=== PATIENT | female | born 1975 | race Caucasian/White ===

== ENCOUNTER 2024-01-16 11:11 | Outpatient (OUT) | payer OTHER, SELFPAY ==
--- NOTE | 2024-01-16 | CONS_ITS ---
CONSULTATION DATE: 01/16/2024 TO: Luis Antonio Childress M.D. CHIEF COMPLAINT: Includes severe bilateral lower back pain. HISTORY OF PRESENT ILLNESS: Review of systems, past medical/surgical history were obtained and documented on the health questionnaire and is available upon request. She is a 48-year-old female who reports having had at least a 10-year history of lower back pain. She has undergone a medial branch block, which offered her significant reduction in pain symptoms, subsequent rhizotomy did not appear to offer complete relief or relief that was satisfactory. She has also undergone what is described as a lumbar epidural steroid injection, which also offered her marginal relief. Her pain has progressed to the point it has altered her quality of life, level of functioning and sleep pattern, and has been described as 5-6/10 pain, sharp in character, increased with activity such as prolonged sitting, forward flexion. She feels most comfortable in the semi-recumbent position, or if she changes positions frequently. She has trialed physical therapy in the past, which did improve her functionality but still had severe pain. EXAM: Her examination is notable for patient having no clinical radiculopathy or myelopathy involving the lower extremities. She may have had some moderate increase in pain symptoms with lumbar axial loading maneuvers. She did appear to have severe pain with facet loading maneuvers occurring bilaterally at L4-5 and L5-S1, with associated myofascial spasms of the lumbar paravertebral muscles, mainly her erector spinae muscle, also worse on the right than the left side on today?s visit. IMPRESSION: Our impression is patient with chronic residual pain secondary to lumbosacral spondylosis at L4-L5, L5-S1, occurring bilaterally, with associated myofascial spasm. RECOMMENDATIONS At this point, I have recommended she consider a trial on baclofen 10 mg pills, half to one t.i.d., aquatic therapy, and then consider proceeding with a repeat ablation of the L4-5, L5-S1 levels with denervation of the L4-5, L5-S1 facet joints, starting on the more symptomatic side first, and proceeding to the less symptomatic side subsequently. As part of providing excellent, safe, comprehensive care, the following was completed at our patient's visit: 1. A medication reconciliation and review to ensure accurate knowledge of current/active medications, including asking our patients to inform us about any [id number] medications or herbal remedies/nutritional supplements/alternative remedies. 2. A review to specifically ensure our patients have had annual screening for: elevated body mass index (BMI, see intake chart for exact total), tobacco use, screening for depression, and screening for unhealthy alcohol use. When screening is concerning, patients are provided with education and the specific recommendation to discuss the concerning health issue and treatment options with their primary care provider. [facility]
== END 2024-01-16 11:12 | disposition home or self-care (01) ==
LOC: PM 11:12
PROVIDERS: Visit Provider Anesthesiology Pain Medicine
DX: M54.50 Low back pain, unspecified (principal); M47.816 Spondylosis without myelopathy or radiculopathy, lumbar region; M62.838 Other muscle spasm
CPT/HCPCS: G0463

== ENCOUNTER 2024-02-06 07:54 | Day surgery (SDC) | payer OTHER, SELFPAY ==
--- OUTSIDE RECORDS SUMMARY | 2024-02-06 07:59 | XMS_ITS | CCD ---
Author Organization [facility] Care Team Providers Care Customer Contact Representative Name Role Phone Loida Joyce MD Primary Care Provider MARLO REEVES Attending Unavailable LOIDA JOYCE Referring Unavailable LOIDA JOYCE Primary Care Unavailable SUHAS BAE Referring Unavailable LOIDA JOYCE Primary Care Unavailable KENNY PORTER Referring Unavailable LOIDA JOYCE Primary Care Unavailable SUHAS BAE Referring Unavailable LOIDA JOYCE Primary Care Unavailable KENNY PORTER Attending Unavailable LOIDA JOYCE Referring Unavailable LOIDA JOYCE Primary Care Unavailable Medications Current Medications Medication Drug Class(es) Dates Sig (Normalized) Sig (Original) busPIRone hydrochloride 5 mg oral tablet (5 sources) Start: 05-31-2021 take 1 tablet by mouth three times daily busPIRone (BUSPAR) 5 mg tablet Take 1 tablet (5 mg total) by mouth 3 (three) times a day. 30 tablet 0 05/31/2021 Active citalopram 40 mg oral tablet (6 sources) Serotonin Reuptake Inhibitor Start: 07-09-2023 take 1 tablet by mouth once daily in the morning citalopram (CeleXA) 40 mg tablet take 1 tablet by mouth every morning 90 tablet 3 07/09/2023 Active Start: 07-06-2022 End: 07-09-2023 take 1 tablet by mouth once daily in the morning citalopram (CeleXA) 40 mg tablet take 1 tablet by mouth every morning 90 tablet 3 07/06/2022 07/09/2023 Discontinued [id number] 0.3 ml EPINEPHrine 1 mg/ml auto-injector (5 sources) alpha-Adrenergic Agonist, beta-Adrenergic Agonist, Catecholamine Start: 11-30-2022 EPINEPHrine (EPIP EN) 0.3 mg/0.3 mL auto-injector Inject 0.3 mL (0.3 mg total) into the appropriate muscle as needed (for sevre allergy). 2 each 0 11/30/2022 Active Lactobac no.41/Bifidobact no.7 (PROBIOTIC-10 ORAL) (5 sources) Lactobac no.41/Bifidobact no.7 (PROBIOTIC-10 ORAL) Take by mouth. 0 Active MULTIVIT-MINERALS/MONIKA MORENA FUM (MULTI VITAMIN ORAL) (5 sources) MULTIVIT-MINERAL S/FE RROUS FUM (MULTI VITAMIN ORAL) Take by mouth. 0 Active omega 5-pge-zhu-fish oil (Fish OiL) 300-1,000 mg capsule (5 sources) omega 3-dha-epa- fish oil (Fish OiL) 300-1,000 mg capsule Take by mouth. 0 Active Problems Active Problems Problem Classification Problem Date Documented Date Episodic/Chronic Coagulation and hemorrhagic disorders (5 sources) Thrombocytopenic disorder; Translations: [Thrombocytopenia, unspecified] Onset: 05-06-2019 05-06-2019 Chronic Other nervous system disorders (1 source) Other chronic pain; Translations: [Other chronic pain] Onset: 03-20-2023 Chronic Other screening for suspected conditions (not mental disorders or infectious disease) (2 sources) Patient encounter status; Translations: [Encounter for screening mammogram for malignant neoplasm of breast] Onset: 08-21-2023 05-18-2023 Episodic Residual codes; unclassified (1 source) Pain Onset: 06-14-2023 Episodic Spondylosis; intervertebral disc disorders; other back problems (2 sources) Lumbar spondylosis; Translations: [Spondylosis without myelopathy or radiculopathy, lumbar region] Onset: 06-14-2023 06-14-2023 Chronic Unclassified (1 source) Gynecologic Exam Onset: 05-18-2023 Unclassified (1 source) Low back pain, unspecified; Translations: [Low back pain, unspecified] Onset: 03-20-2023 Past or Other Problems Problem Classification Problem Date Documented Da te Episodic/Chronic Mood disorders (5 sources) Mood disorders Onset: 02-22-2023 02-22-2023 Other nervous system disorders (5 sources) Other symptoms and signs involving cognitive functions and awareness; Translations: [Other signs and symptoms involving cognition] Onset: 12-27-2015 12-27-2015 Episodic Other skin disorders (5 sources) Epidermoid cyst; Translations: [Epidermal cyst] Onset: 07-19-2017 07-19-2017 Episodic Residual codes; unclassified (5 sources) Mild memory disturbance ; Translations: [Other amnesia] Onset: 12-27-2015 12-27-2015 Episodic Spondylosis; intervertebral disc disorders; other back problems (3 sources) Backache; Translations: [Dorsalgia, unspecified] Onset: 03-20-2023 06-14-2023 Episodic Results Test Name Value Interpretation Reference Range Facil ity MAMM SCREENING BILATERAL W C registered nurse surgical services 08-23-2023 MAMM SCREENING BILATERAL W CAD MAMM SCREENING BILATERAL W CAD EXAM: MAMM SCREENING BILATERAL W CAD, 08/21/2023 3:19 PM CLINICAL INDICATIONS: Screening, Encounter for screening mammogram for malignant neoplasm of breast COMPARISON: 08/26/2022, 08/16/2022, 04/26/2021 TECHNIQUE: Bilateral digital tomosynthesis MLO and CC views of the breasts were obtained, with creation of synthetic 2D views. Computer aided detection was utilized. FINDINGS: There are scattered areas of fibroglandular density. There are no suspicious masses, calcifications, or areas of architectural distortion. IMPRESSION: No mammographic evidence of malignancy. BI-RADS: BI-RADS 1 - Negative Recommendation: Routine screening mammogram in 1 year. Finalized by Flora Burrell MD on 08/23/2023 2:24 PM 1 b MAMM 1 YR Normal [facility] MR LUMBAR SPINE WO CONTon MR LUMBAR SPINE WO CONT MR LUMBAR SPINE WO CONT EXAM: MR LUMBAR SPINE WO CONT INDICATION: Chronic bilateral low back pain without sciatica; Severe back pain COMPARISON: None TECHNIQUE: Multiplanar multisequence noncontrast MR sequences through the lumbosacral spine. FINDINGS: Vertebral Bodies and intervertebral discs: The vertebral body heights and signal properties are normal.. Desiccation of the intervertebral discs at L3-L4 and L5-S1. Alignment: Normal. Extradural:There are no abnormal extradural fluid collections or masses. Conus: The conus terminates at approximately L1-L2 intervertebral disc space. Spinal Cord and Cauda Equina: The included caudal spinal cord appears normal. Normal appearance of the cauda equina. Spinal levels: T12-L1: No spinal canal or foraminal stenosis. L1-L2: No spinal canal or foraminal stenosis. L2-L3: No spinal canal or foraminal stenosis. L3-L4: Small central disc protrusion with associated annular fissure. This is superimposed on mild circumferential disc bulge. There is mild thecal sac narrowing. Mild neural foraminal stenosis. L4-L5: Mild circumferential disc bulge. Mild bilateral facet arthropathy. No significant spinal canal stenosis. Mild bilateral neural foraminal stenosis. L5-S1: Circumferential disc bulge. Mild bilateral facet arthropathy. No significant spinal canal stenosis. Severe bilateral neural foraminal stenosis. Soft Tissues: Normal Intraabdominal structures: The included retroperitoneal and pelvic structures appear normal. IMPRESSION: Multilevel degenerative disc disease most pronounced at L5-S1 and to a lesser extent L3-L4. Central disc protrusion at L3-L4 with associated annular fissure. Mild thecal sac narrowing. Multilevel neural foraminal stenosis of varying degrees of severity most pronounced at L5-S1 bilaterally. See above for detailed evaluation of the individual levels. Finalized by Delon Luna on 05/11/2023 10:45 AM Normal [facility] Vital Signs Date Time Vital Sign Value Performing Clinician Lorriei gerardoy 06-14-2023 07:40-0400 Body height 171.5 cm Marlo Reeves MD Work Phone: [facility] 06-14-2023 07:40-0400 Body mass index (BMI) [Ratio] 24.69 kg/m2 Marlo Reeves MD Work Phone: [facility] 06-14-2023 07:40-0400 Body weight 72.58 kg Marlo Reeves MD Work Phone: [facility] 05-18-2023 10:31-0500 Body height 171.5 cm Kenny Porter DO Work Phone: [facility] 05-18-2023 10:31-0500 Body mass index (BMI) [Ratio] 24.72 kg/m2 Kenny Porter DO Work Phone: [facility] 05-18-2023 10:31-0500 Body weight 72.67 kg Kenny Porter DO Work Phone: [facility] 05-18-2023 10:31-0500 Diastolic blood pressure 78 mm[Hg] Kenny Porter DO Work Phone: [facility] 05-18-2023 10:31-0500 Systolic blood pressure 118 mm[Hg] Kenny Rosemont DO Work Phone: [facility] Encounters Encounter Date Encounter Type Care Provider Facility Start: 08-21-2023 End: 08-22-2023 ambulatory [facility] Start: 07-09-2023 Refill Loida morrell MD Work Phone: [facility] Start: 06-14-2023 End: 06-14-2023 ambulatory [facility] Start: 06-14-2023 End: 06-14-2023 Office outpatient new 30 minutes Marlo Reeves MD Work Phone: [facility] Comment on above: 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); Severe back pain Start: 05-18-2023 End: 05-18-2023 ambulatory KENNY Dillon PORTER [facility] Start: 05-18-2023 Encounter for gynecological examination (general) (routine) [facility] abnormal [facility]: 05-18-2023 End: 05-18-2023 Patient encounter status Kenny Porter DO Work Phone: [facility] Start: 05-18-2023 End: 05-18-2023 Periodic preventive med est patient 40-64yrs Kenny Porter DO Work Phone: [facility] Comment on above: Encounter for gyneco logical examination without abnormal finding (Primary Dx); Encounter for screening mammogram for malignant neoplasm of breast Start: 05-09-2023 End: 05-10-2023 ambulatory [facility] Start: 05-03-2023 Telephone encounter Erika Jovel [facility] Start: 05-01-2023 Telephone encounter Erika Staton [facility] Start: 03-20-2023 End: 04-03-2023 ambulatory [facility] Start: 12-27-2015 End: 10-24-2016 Patient encounter status Erika Jamie [facility] Work Phone: Procedures Date Procedure Procedure Detail Performing Clinician Start: 02-22-2023 Adult depression scr eening assessment Erika Ayala Start: 08-26-2022 Mammography Erika rodriguez Start: 03-31-2022 Microscopic observat ion [Identifier] in Cervix by Cyto stain Erika Ayala Plan of Treatment Date Care Activity Detail Author Start: 03-31-2025 Screening for malign ant neoplasm of cervix Pap Smear [facility] Start: 11-27-2024 DTaP,Tdap and Td Vaccines (2 - Td or Tdap) DTaP,Tdap and Td Vaccines (2 - Td or Tdap) [facility] Start: 09-19-2024 End: 09-19-2024 Patient encounter procedure 09/19/2024 10:00 AM EDT Office Visit [facility] [address] [place] [address] Kenny Porter, [address] [facility] [place] [address] [facility] Start: 08-26-2024 Screening for malign ant neoplasm of breast Mammogram [facility] Start: 08-22-2024 End: 08-22-2024 Patient encounter procedure 08/22/2024 11:00 AM EDT [facility] [address] [place] [address] Kenny Porter, [facility] [place] [address] [facility] Start: 06-13-2024 Adult BMI Screening Adult BMI Screen ing [facility] Start: 06-13-2024 Tobacco Screening Tobacco Screening [facility] Start: 05-18-2024 Adult BMI Screening Adult BMI Screen ing [facility] Start: 05-18-2024 Tobacco Screening Tobacco Screening [facility] Start: 02-23-2024 Adult BMI Screening Adult BMI Screen ing [facility] Start: 02-23-2024 Depression Screening Depression Scre ening [facility] Start: 02-23-2024 Tobacco Screening Tobacco Screening [facility] Start: 12-03-2023 Influenza vaccination Influenza Vacc ine [facility] Start: 08-21-2023 End: 08-21-2023 Patient encounter procedure 08/21/2023 3:30 PM EDT Appointment [facility] Mamm[facility] [address] [address] [facility] - Mammography Start: 06-14-2023 End: 06-14-2023 Patient encounter procedure 06/14/2023 7:40 AM EDT Office Visit [facility] [address] [place] [address] [address] [place] [id number] Marlo Reeves MD [facility] [facility], [address] [address] [facility] Start: 05-18-2023 End: 05-18-2024 DBT Breast - bilateral screening Mammography screening bilateral with CAD Imaging Routine Encounter for screening mammogram for malignant neoplasm of breast Expected: 05/18/2023, Expires: 05/18/2024 Med Work Phone: Comment on above: Expected: 05/18/2023 , Expires: 05/18/2024 Start: 05-18-2023 End: 05-18-2023 Patient encounter procedure 05/18/2023 10:30 AM EST Office Visit [facility] [address] [place] [address] [place] Kenny CarranzaDO [address] [facility] [place] [address] [facility] Start: 05-09-2023 End: 05-09-2023 Patient encounter procedure 05/09/2023 9:15 PM EST Appointment [facility] [place] [address] [place] [id number] [facility] Start: 12-02-2022 COVID-19 Vaccine ( season) COVID-19 Vaccine ( season) [facility] Start: 12-02-2022 Influenza vaccination Influenza Vacc ine [facility] Immunizations Immunization Date Immunization Notes Care Provider Jerardo cruz 01-09-2018 influenza virus vaccine, unspecified formulation Erika Napalycia [facility] 12-14-2016 influenza virus vaccine, unspecified formulation [facility] 11-27-2014 tetanus toxoid, redu renato diphtheria toxoid, and acellular pertussis vaccine, adsorbed [facility] Payers Date Payer Category Payer Unknown [facility] [id number] 2021-Present [phone] [address] [address] [place] [address] [id number] 2021 Unknown [id number] 1975 Unknown [id number] 1975 Unknown [id number] 1975 Unknown [id number] 1975 Unknown [id number] 1975 Unknown [id number] Social History Date Type Detail Facility Start: 03-31-[address] [facility] Start: 03-31-2022 Tobacco use and exposure Smoke less tobacco non-user [facility] Start: 02-22-2023 End: 06-14-2023 Alcohol intake Current drinker of alcohol (finding) [facility] Start: 02-13-2020 End: 04-22-2020 History of Social function [facility] Start: 02-13-2020 End: 04-22-2020 Alcohol Use Disorder Identification Test - Consumption [AUDIT-C] [facility] How often to you hav e a drink containing alcohol? 2-4 times a month [facility] How many standard dr inks containing alcohol do you have on a typical day? 1 or 2 [facility] How often do you hav e 6 or more drinks on 1 occasion? Less than monthly [facility] Adolescent depressio n screening assessment 0 [facility] Start: 1975 Sex Assigned At Female [facility] Start: 03-20-2021 Gender identity Identifies as female gender (finding) [facility] Start: 03-20-2021 Sexual orientation Heterosexual (fin ding) [facility] NEGATED: Highlighted rowStart: NINF History of tobacco use Passive smoker [facility] Clinical Notes 05-01-2023 to 06-14-2023 Marlo Reeves MD - 06/14/2023 7:40 AM EDTPatizohra Porter DO - 05/18/2023 10:30 AM ESTTelephone Encounter - Erika Ayala - 05/03/2023 11:29 AM EST Note Date & Type Note Facility 06-14-2023 History of Presen t illness Narrative [facility] [address] [facility] [id number] CHART NOTE ? 06/14/2023 Patient: Ashley Smith 1975 [id number] Physician: Marlo Reeves MD Last encounter with Group Visit date not found REFERRING PHYSICIAN Loida Joyce MD PCP LOIDA JOYCE MD CHIEF COMPLAINT: Lower back pain SUBJECTIVE: Ashley Smith is a 48 y.o. female who has been referred for consultation regarding her lower back symptoms. The pain started gradually 10 years ago and is chronic in nature, but has been getting worse. The pain in her lower back spine has been for and a scale of 1-10 on an average. The pain usually does not radiate down to the legs. Her symptoms are worse in the morning. She is able to walk up to a mile without any difficulty. The pain is relieved with rest . It gets worse with activity . She denies any recent onset problems with bowel or bladder dysfunction. Patient has tried taking anti inflammatory medications. She has had physical therapy. PAST MEDICAL HISTORY, MEDICATIONS, ALLERGIES, SOCIAL HISTORY AND FAMILY HISTORY, REVIEW OF SYSTEMS : Reviewed. She reports that she has never smoked. She has never been exposed to tobacco smoke. She has never used smokeless tobacco.. Her body mass index is 24.69 kg/m . OBJECTIVE: The patient is alert, awake and oriented X3. Patient is cooperative. Mood and affect is normal. HEENT examination is unremarkable. Patient is normocephalic. Patient walks with a normal gait. Brisk capillary refill noted in lower extremities. Lumbar Spine examination reveals no tenderness to palpation. There is no paraspinal spasm and guarding noted. Range of movement is good with no increased pain. Motor strength testing reveals 5/5 strength in the lower extremities. Sensory examination grossly intact to light touch. Straight leg raise is negative. Bilateral hips reveal good range of motion. Sacroiliac joints no tenderness to palpation. IMAGING: ASSESSMENT: Lumbar degenerative disc disease L5-S1 Mild disc bulging causing no central canal or foraminal stenosis. PLAN: Imaging as well as possible treatment options were discussed detail with the patient. At this point she has tried physical therapy with little to no relief. With that being said I did discuss with her the possibility of pain management. I will get her referred and plan to see her back on a p.r.n. basis if this does not work for her. I, Marlo Reeves MD, personally performed the face to face evaluation on this patient. I discussed with the patient and confirmed the accuracy and completeness of the aforementioned history, and I personally performed the clinical examination of the patient. I performed the critical and elder portions of the service. I agree with above-mentioned history and physical examination findings. I have established and discussed the course of treatment with the patient and EMMANUELLE Orlando. My medical decision making and treatment plan are as follows: This is a 48-year-old female who presents to me for evaluation of her lumbar spine. 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 She has been reporting some lower back pain for the past 10 years or so. She denies any lower extremity symptoms. She has not done any pain management but she is done extensive physical therapy. 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 Denies any bowel or bladder dysfunction.Lumbar Spine examination reveals mild to moderate tenderness. There is increased pain with extension and less pain with flexion. Negative straight leg raise. Calves are soft and nontender. Overlying skin is intact. There is no gross motor sensory deficit in bilateral lower extremities from L2 down to S1. Lumbar radiographs show some degenerative disc disease L5-S1. Lumbar MRIs not particularly impressive it does not warrant any surgical treatment. I discussed these findings with the patient. She is willing to try pain management at the next modality of choice. I will have her come back in the office if she still remains symptomatic Despitepain management. She has no questions. This note was created with the assistance of a speech recognition program with the goal of generating a timely record of the patient encounter. Inadvertent computerized popcorn candy maker errors related to syntax, spelling, homophones, and/or inaudibility may be present. documented in this encounter [employer] 06-14-2023 Instructions Marlo Reeves MD - 06/14/2023 7:40 AM EDT Images from the original note were not included. Patient Education Patient Education Back Exercises About this topic The muscles in the back are some of the most important ones in the body. They support the backbone to help keep an upright posture. They help us do most all of our daily motions. General Before starting with a program, ask your doctor if you are healthy enough to do these exercises. Your doctor may have you work with a strainer tender, chiropractor or physical therapist to make a safe exercise program to meet your needs. Stretching Exercises Stretching exercises keep your muscles flexible. They also stop them from getting tight. Start by doing each of these stretches 2 to 3 times. In order for your body to make changes, you will need to hold these stretches for 20 to 30 seconds. Try to do the stretches 2 to 3 times each day. Do all exercises slowly. Do not bounce when doing stretches. Single knee to chest stretches ? Lie on your back, bend your knees and have your feet flat on the floor. Pull one knee towards your chest until you feel a stretch in your lower back and buttock area. Repeat with the other knee. If you have knee problems, pull your knee up by grabbing the back of your thigh instead of the front of your knee. You can also do this exercise by grabbing both knees at the same time. Lower trunk rotations ? While lying on your back, bend your knees and have your feet flat on the floor. Keep your legs together and then drop them to one side. Be sure to keep both of your shoulders touching the floor until you feel a stretch in the muscles at the side of the back. Repeat on the other side. Lower back stretches seated ? Sit in a chair with your feet spread about shoulder width apart. Then, lean forward until you feel a stretch in your lower back. Strengthening Exercises Strengthening exercises keep your muscles firm and strong. Start by repeating each exercise 2 to 3 times. Work up to doing each exercise 10 times. Hold each exercise for 3 to 5 seconds. Try to do the exercises 2 to 3 times each day. Do all exercises slowly. Shoulder blade squeezes ? Pinch your shoulder blades together on your upper back and hold 3 to 5 seconds. Be sure you are sitting with good posture and make sure your shoulders do not raise up when you do this exercise. Relax. Pelvic tilts ? Lie on your back with your knees bent and feet flat on the floor. Tighten your stomach muscles and press your lower back down to the floor. Relax. Hip lifts ? Lie on your back with your knees bent and feet flat on the floor. Tighten your stomach muscles and lift your buttocks off the floor. Relax. What will the results be? Keeping your back muscles flexible and strong can help stop muscle injuries. This often happen when muscles are tight or weak. Helpful tips Stay active and work out to keep your muscles strong and flexible. Keep a healthy weight to avoid putting too much stress on your spine. Eat a healthy diet to keep your muscles healthy. Be sure you do not hold your breath when exercising. This can raise your blood pressure. If you tend to hold your breath, try counting out loud when exercising. If any exercise bothers you, stop right away. Always warm up before stretching. Heated muscles stretch much easier than cool muscles. Stretching cool muscles can lead to injury. Try walking or cycling at an easy pace for a few minutes to warm up your muscles. Do this again after exercising. Never bounce when doing stretches. Doing exercises before a meal may be a good way to get into a routine. Exercise may be slightly uncomfortable, but you should not have sharp pains. If you do get sharp pains, stop what you are doing. If the sharp pains continue, call your doctor. Where can I learn more? [employer] https://orthoinfo.org/en/recover y/irexj-pgwcqhzrslds-rdbssth/spi vr-nldxyzprynyk-ppbwole-pdf Last Reviewed Date 2020-06-18 Consumer Information Use and Disclaimer This generalized information is a limited summary of diagnosis, treatment, and/or medication information. It is not meant to be comprehensive and should be used as a tool to help the user understand and/or assess potential diagnostic and treatment options. It does NOT include all information about conditions, treatments, medications, side effects, or risks that may apply to a specific patient. It is not intended to be medical advice or a substitute for the medical advice, diagnosis, or treatment of a health care provider based on the health care provider's examination and assessment of a patient s specific and unique circumstances. Patients must speak with a health care provider for complete information about their health, medical questions, and treatment options, including any risks or benefits regarding use of medications. This information does not endorse any treatments or medications as safe, effective, or approved for treating a specific patient. [employer] and its affiliates disclaim any warranty or liability relating to this information or the use thereof. The use of this information is governed by the Terms of Use, available at https://www.wolAvolentuwer.com/en /know/qhdnqthc-ifurusnadttnk-yia ms Copyright Copyright 2022 [employer] and its affiliates and/or licensors. All rights reserved. Patient Education Patient Education Low back pain in adults The Basics Written by the doctors and editors at [facility] How worried should I be about low back pain? -- Do not assume the worst. Almost everyone gets back pain at some point. Low back pain can be scary. But even when the pain is severe, it usually goes away on its own within a few weeks. The cases that require urgent care or surgery are rare. See your doctor or nurse if you have back pain and you: Recently had a fall or an injury to your back Have numbness or weakness in your legs Have problems with bladder or bowel control Have unexplained weight loss Have a fever or feel sick in other ways Take steroid medicine, such as prednisone, on a regular basis Have diabetes or a medical problem that weakens your immune system Have a history of cancer or osteoporosis You should also see a doctor if: Your back pain is so severe that you cannot perform simple tasks Your back pain does not start to improve within 4 weeks What are the parts of the back? -- The back is made up of (figure 1): Vertebrae - A stack of bones that sit on top of one another like a stack of coins. Each of these bones has a hole in the center. When stacked, the holes in the bones form a hollow tube that protects the spinal cord. Discs - Rubbery discs sit in between each of the vertebrae to add cushion and allow movement. Spinal cord and nerves - The spinal cord is the highway of nerves that connects the brain to the rest of the body. It runs through the vertebrae within the spinal canal. Nerves branch from the spinal cord and pass in between the vertebrae. From there, they connect to the arms, the legs, and the rest of the body. This is why problems in the back can cause leg pain or bladder or bowel problems. Muscles, tendons, and ligaments - Together, the muscles, tendons, and ligaments are called the soft tissues of the back. These soft tissues support the back and help hold it together. What causes low back pain? -- Many different things can cause low back pain. Most of the time, doctors do not know the exact cause. Back pain can happen if you strain a muscle. This is often what has happened when a person throws out their back. This refers to pain that starts suddenly after physical activity, like lifting something heavy or bending over. Back pain can also happen if you have: Damaged, bulging, or torn discs Arthritis affecting the joints of the spine Bony growths on the vertebrae that crowd nearby nerves A vertebra out of place Narrowing in the spinal canal A tumor or infection (but this is very rare) Should I get an imaging test? -- Most people do not need an imaging test such an X-ray, CT scan, or MRI. Most cases of back pain go away a few weeks. Doctors usually do not order imaging tests unless there are signs of something unusual. If your doctor does not order an imaging test, do not worry. They can still learn a lot about your pain just from looking you over and talking with you. How can the doctor or nurse tell what is wrong just by talking to me? -- Your symptoms tell your doctor or nurse a lot about the cause of your pain. For example: If your pain started after you did something specific, like lifting a heavy object or twisting your back, you might have strained a muscle If your pain spreads down the back of 1 thigh, it could be a sign that 1 of the nerves that go to your leg is being pinched by a bulging or torn disc If your pain goes all the way down both legs, it could be a sign that you have a narrowed spinal canal. This is most often due to bony growths on your spine. How is back pain treated? -- Most people with an episode of low back pain do not have a serious medical problem, and can try simple treatments such as: Staying active - The best thing you can do is to stay as active as possible. People with low back pain recover faster if they stay active. If your pain is severe, you might need to rest for a day or 2. But it's important to get back to walking and moving as soon as possible. While you should avoid heavy lifting and sports while your back hurts, try to keep doing your normal daily activities. Heat - Some people find that it helps to use a heating pad or heated wrap. Be careful to avoid high heat settings to prevent skin hernandez. Medicines - First, you can try pain medicines that you can get without a prescription. In many cases, doctors suggest first trying a nonsteroidal antiinflammatory drug, or NSAID. NSAIDs include ibuprofen (sample brand names: Advil, Motrin) and naproxen (sample brand name: Aleve). These might work better than acetaminophen (sample brand name: Tylenol) for back pain. If non-prescription medicines do not help, let your doctor or nurse know. In some cases, doctors prescribe a medicine to relax the muscles (called a muscle relaxant ). But keep in mind that muscle relaxants are not generally used in people older than 65. In older people, these medicines can cause side effects such as trouble urinating or confusion. Treatments to help with symptoms - Some treatments might help you feel better for a little while. They include: Spinal manipulation - This is when a chiropractor, physical therapist, or other professional moves or adjusts the joints of your back. If you want to try this, talk to your doctor or nurse first. Acupuncture - This is when someone who knows traditional Croatian medicine inserts tiny needles into your body to block pain signals. Massage - A massage therapist massages the muscles and other soft tissues in your back. While back pain usually goes away within a few weeks, some people do continue to have pain for longer. In this case, additional treatments might include: Self-care - This involves being aware of your pain. While you should rest when you need to, it's important to stay active as much as you can. Things like applying heat and doing gentle stretches can help you feel better, too. Physical therapy - A physical therapist is an exercise expert who can teach you stretches and movements to help strengthen your muscles. The goal is to relieve pain but also help you get back to your normal activities. Exercises you can try include walking, swimming, or using an exercise bike. Some people also find that paola chi or yoga can help with their back pain. Finding activities you enjoy can help you stay active. Reducing stress - Some people find that it helps to try something called mindfulness-based stress reduction. This involves going to a group program to practice relaxation and meditation. If your back pain is making you feel anxious or depressed, talk to your doctor or nurse. There are other treatments that can help with these problems. Some people wonder if injections (shots) can help to relieve back pain. In some cases, doctors might recommend a shot of medicine to numb the area or reduce swelling. But this has only been proven to work in specific situations. Only a small number of people will need surgery to treat back pain. What can I do to keep from getting back pain again? -- The best thing you can do is to stay active. Doing exercises to strengthen and stretch your back can help. You can also: Learn to lift using your legs instead of your back Avoid sitting or standing in the same position for too long Having back pain can be frustrating and scary. But it can help to know that doing these things can lower your risk of having another episode. All topics are updated as new evidence becomes available and our peer review process is complete. This topic retrieved from [employer] on: May 16, 2022. Topic 49067 Version 20.0 Release: 30.5.3 - C31.43 2022 [email or web address] and/or its affiliates. All rights reserved. figure 1: Anatomy of the back Low back pain can be caused by problems with the muscles, ligaments, discs, bones (vertebrae), or nerves. Often, back pain is caused by strains or sprains involving the muscles or ligaments. These problems cannot always be seen on imaging tests, such as MRI or CT scans. Graphic 81213 Version 5.0 Consumer Information Use and Disclaimer This generalized information is a limited summary of diagnosis, treatment, and/or medication information. It is not meant to be comprehensive and should be used as a tool to help the user understand and/or assess potential diagnostic and treatment options. It does NOT include all information about conditions, treatments, medications, side effects, or risks that may apply to a specific patient. It is not intended to be medical advice or a substitute for the medical advice, diagnosis, or treatment of a health care provider based on the health care provider's examination and assessment of a patient's specific and unique circumstances. Patients must speak with a health care provider for complete information about their health, medical questions, and treatment options, including any risks or benefits regarding use of medications. This information does not endorse any treatments or medications as safe, effective, or approved for treating a specific patient. [email or web address] and its affiliates disclaim any warranty or liability relating to this information or the use thereof.The use of this information is governed by the Terms of Use, available at https://www.Meetings.iouwer.com/en /know/kmvuaxht-goimuezwxibih-fuq ms 2022 [employer] and its affiliates and/or licensors. All rights reserved. Copyright 2022 [employer] and/or its affiliates. All rights reserved. documented in this encounter [employer] 05-18-2023 History of Presen t illness Narrative Subjective Ashley Smith is a 48 y.o. female who presents for an annual gynecologic exam. The patient reports weight gain-disc poss etiologies and what to watch for, and breast tenderness bilateral-lasted 1.5 wks, does not normally occur-disc poss etiologies and suspect due to hormones, will watch over next couple cycles . Pt is doing well otherwise, no life changes, no other concerns today Periods are regular every 28-30 days, lasting 7 days. Dysmenorrhea:severe, occurring premenstrually and first 1-2 days of flow. Cyclic symptoms include cramping . No intermenstrual bleeding, spotting, or discharge. Current contraception: vasectomy History of abnormal Pap smear: no Last pap: March 13, 2022 Family history of uterine or ovarian cancer: no Regular self breast exam: yes Last mammogram: August 16, 2022 Last colonoscopy: Cologuard 04/10/2022 Family history of breast cancer: no Family history of colon cancer: no Menstrual History: OB History 2 Para 2 Term 2 AB Living 2 SAB IAB Ectopic Multiple Live Births 2 Menarche age: 13 LMP:05/15/2023 The following portions of the patient's history were reviewed and updated as appropriate: allergies, current medications, past family history, past medical history, past social history, past surgical history and problem list. Review of Systems Pertinent items are noted in HPI, otherwise negative. Objective There were no vitals filed for this visit. General: alert, appears stated age and cooperative Heart: regular rate and rhythm Lungs: clear to auscultation bilaterally Breast: normal without suspicious masses, skin or nipple changes or axillary nodes Abdomen: soft, non-tender, without masses or organomegaly Vulva: normal, Bartholin's, Urethra, [place]'s normal Vagina: Vaginal Cuff:no Bleeding: no Discharge: no Cervix: no cervical motion tenderness Uterus: normal size, non-tender, and normal shape and consistency Adnexa: normal adnexa, no mass/fullness/tenderness bilaterally Lymphatics: No abnormally enlarged lymph nodes. Musculoskeletal: Normal. Skin: Skin color, texture, turgor normal. No rashes or lesions Neuro: normal without focal findings, mental status, speech normal, alert and oriented x3, ROBERTO and reflexes normal and symmetric Psychological: normal mood, behavior, speech, dress, and thought processes Assessment/Plan: Ashley was seen today for gynecologic exam. Diagnoses and all orders for this visit: Encounter for gynecological examination without abnormal finding Encounter for screening mammogram for malignant neoplasm of breast - Mammography screening bilateral with CAD; Future Breast self exam technique reviewed and patient encouraged to perform self-exam monthly. Encouraged colonoscopy and/or FIT screening test. Contraception: vasectomy Discussed healthy lifestyle modifications including dietary changes and exercise for weight loss Follow up in 1 year. Follow up as needed. Mammogram. Patient was also counseled perimenopausal/menopausal signs and symptoms and adequate intake of calcium and vitamin D. All questions answered. Patient understands and agrees with plan. Encouraged to call if questions or concerns, pt agreeable. documented in this encounter [facility] 05-03-2023 Miscellaneous Notes PT called to confirm that physical therapy documents were received. Appears we have that from [facility] in her chart. Please advise if there is anything else needed from the patient at this time. Thank you! Paperwork was faxed previously to pre cert documented in this encounter [facility] 05-03-2023 Telephone encounter Note PT called to confirm that physical therapy documents were received. Appears we have that from [facility] in her chart. Please advise if there is anything else needed from the patient at this time. Thank you! [facility] 05-03-2023 Telephone encounter Note Paperwork was faxed previously to pre cert [facility] 05-01-2023 Miscellaneous Notes Phil with [facility] pre-cert. called Asking for physical therapy notes that can be sent over on this patient before their upcoming MRI appt on May 09. Please fax to [phone]. Please advise. Thank you! Can you do this? I called the patient back since there are no PT notes in her chart (Suhas has a note she completed PT but there is not record of this in her chart and he ordered the MRI) She states she did PT thru her insurance and she will have the notes faxed over to our office Paperwork was faxed over from [facility] and was faxed to pre cert as requested per verbal order documented in this encounter [facility] 05-01-2023 Telephone encounter Note Phil with [facility] pre-cert. called Asking for physical therapy notes that can be sent over on this patient before their upcoming MRI appt on May 09. Please fax to [phone]. Please advise. Thank you! [facility] 05-01-2023 Telephone encounter Note Can you do this? [facility] Work Phone: 05-01-2023 Telephone encounter Note I called the patient back since there are no PT notes in her chart (Suhas has a note she completed PT but there is not record of this in her chart and he ordered the MRI) She states she did PT thru her insurance and she will have the notes faxed over to our office Paperwork was faxed over from [facility] and was faxed to pre cert as requested per verbal order [employer] [facility] Evaluation note Diagnosis Encounter for gynecological examination without abnormal finding- Primary Encounter for screening mammogram for malignant neoplasm of breast documented in this encounter [facility]* Diagnosis Spondylosis of lumbar region without myelopathy or radiculopathy- Primary Severe back pain documented in this encounter [facility] SystemInstructionsNot on filedocumented in this encounter [facility] [employer] SystemInstructionsNot on filedocumented in this encounter [facility] SystemInstructions* Attachments The following attachments cannot be sent through Care Everywhere. * Gynecological Exam (Armenian) [facility] (narrative)* Consultation (Routine) - Pending Review Specialty Diagnoses / Procedures Referred By Maranda t Referred To Contact Pain Medicine Diagnoses Spondylosis of lumbar region without myelopathy or radiculopathy Marlo Reevse MD [address] [place] [address], [place] [address] Ludwin Alexander MD [address] [employer] [place] [place] [address] Referral ID Status Reason Start Date Expiration Date V isits Requested Visits Authorized [id number] Pending Review 06/14/2023 06/13/2024 1 1 [employer] Advance Directives No Advanced Directives Records FoundDocuments on File Type Date Recorded Patient Wellness Specialist Expl anation Advance Directive 05/06/2019 11:34 AM ppgad 05/06/2019 Documents on File Type Date Recorded Patient Wellness Specialist Expl anation Advance Directive 05/06/2019 11:34 AM ppgad 05/06/2019 Summary Purpose Family History No Family History Records FoundNo Family History Records Found Additional Source Comments Care Teams (unrecognized sec tion and content) Customer Contact Representative 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 Specialty Start Date End Date Loida Joyce MD [address] [place] [address], [address] [place] [address] PCP - General 02/22/13 Customer Contact Representative 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 Specialty Start Date End Date Loida Joyce MD [address] [place] [address], [address] [place] [address] PCP - General 02/22/13 Customer Contact Representative 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 Specialty Start Date End Date Loida Joyce MD [address] [place] [address], [address] [place] [address] PCP - General 02/22/13 Customer Contact Representative 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 Specialty Start Date End Date Loida Joyce MD [address] [place] [address], [address] [facility] [place] [address] PCP - General 02/22/13 Reason for Visit (unrecogniz ed section and content) Reason Comments Gynecologic Exam Reason Comments Pain Lumbar- pain stays i n back, minimal pain Specialty Diagnoses / Procedures Referred By Contac t Referred To Contact Orthopedic Surgery Diagnoses [place] [address] [place] [address], [address] [place] [address] Marlo Reeves MD [address] [place] [address], [address] [address] Referral ID Status Reason Start Date Expiration Date Visits Requested Visits Authorized [id number] Pending Review Specialty Services Required 05/12/2023 05/11/2024 1 1 Reason Comments Med Refill INFORMATION SOURCE (unrecogn ized section and content) DATE CREATED AUTHOR 06/15/2023 [facility] DATE CREATED AUTHOR AUTHOR'S YARELIS ATJO ANN 08/23/2023 [facility] FOR RECORDS PERTAINING TO PATIENTS WHO ARE OR HAVE BEEN ENROLLED IN A CHEMICAL DEPENDENCY/SUBSTANCEABUSE PROGRAM, SOME INFORMATION MAY BE OMITTED. This clinical summary was aggregated from multiple sources. Caution should be exercised in using it in the provision of clinical care. This summary normalizes information from multiple sources, and as a consequence, information in this document may materially change the coding, format and clinical context of patient data. In addition, data may be omitted in some cases. CLINICAL DECISIONS SHOULD BE BASED ON THE PRIMARY CLINICAL RECORDS. [employer] provides no warranty or guarantee of the accuracy or completeness of information in this document.
[2024-02-06 08:09] VITALS: BP 124/75; PULSE 84; TEMP 36.5; O2SAT 99
[2024-02-06 09:16] VITALS: BP 125/62; PULSE 72; O2SAT 96
[2024-02-06 09:17] VITALS: BP 124/71; PULSE 73; O2SAT 97
[2024-02-06] MEDS: TRIAMCINOLONE ACETONIDE 40 MG/ML VIAL INJ (09:22)
[2024-02-06] MEDS: BUPIVACAINE HCL 0.25% PF 25 MG/10 ML VIAL 4 ML INJ (09:23)
--- NOTE | 2024-02-06 10:20 | P.ON_ITS ---
Date of procedure: 02/06/24 Pre-op diagnosis: Lumbar spondylosis Post-op diagnosis: same as pre-op Procedure: Bilateral lumbar 4-5, 5-S1 medial branch block - therapeutic Under fluoroscopic guidance Solution injected: 2milliliters Marcaine 0.25%, Depomedrol 40mg Anesthesia :none Immediate complications none Time out process compliant After informed consent obtained from the patient placed in the [employer] . area was prepped and draped in a sterile fashion using betadine .25 gauge spinal needle inserted over each of the above mentioned target areas . [place] were directed towards the target under fluoroscopic guidance . after encountering each of the targets , no indication of intravascular intraneuronal or intrathecal needle tip placement. Then 0 .5 to 1 Milliliter was injected at each level. [place] removed postoperatively. patient transferred to recovery in stable condition to be discharged home after meeting criteria Anesthesia: Local Surgeon: Toma Thompson Condition: stable Disposition: PACU
== END 2024-02-06 09:27 | disposition home or self-care (01) ==
LOC: SURGOUT 07:55
PROVIDERS: Visit Provider Anesthesiology Pain Medicine
DX: M47.816 Spondylosis without myelopathy or radiculopathy, lumbar region (principal)
CPT/HCPCS: 64493; 64494; J0665; J3301

== ENCOUNTER 2024-02-15 15:31 | Outpatient (OUT) | payer OTHER, SELFPAY ==
--- NOTE | 2024-02-15 15:44 | PM.CN ---
Consult Note: HPI Data of Consult Patient: known to practice within the last 3 years Requesting Physician: Melody Laboy NP Primary Care Provider: Non-Staff Physician, MD Consult Narrative Reason for consult: f/u Narrative: She is a 49-year-old female who reports having had at least a 10-year history of lower back pain. She has undergone a medial branch block, which offered her significant reduction in pain symptoms, subsequent rhizotomy did not appear to offer complete relief or relief that was satisfactory. She has also undergone what is described as a lumbar epidural steroid injection, which also offered her marginal relief. Her pain has progressed to the point it has altered her quality of life, level of functioning and sleep pattern, and has been described as 5-6/10 pain, sharp in character, increased with activity such as prolonged sitting, forward flexion. She feels most comfortable in the semi-recumbent position, or if she changes positions frequently. She has trialed physical therapy in the past, which did improve her functionality but still had severe pain. recently underwent a bilateral L4/5 L5/S1 therapeutic facet block with 50% improvement ongoing. Pain 1/10 intermittent stiffness. finds benefit to baclofen 5-20mg TID PRN pain/spasms without side effects. cc:: CC: Melody Laboy NP Review of Systems ROS Musculoskeletal Reports: back pain PFSH PFS Medical History (Updated 02/15/24 @ 15:59 by Melody Laboy NP) Low back pain ?M54.50 - Low back pain, unspecified (ICD-10) Surgical History H/O section ?Z98.891 - History of uterine scar from previous surgery (ICD-10) Meds Home Medications and Allergies Home Medications ?Medication ?Instructions ?Recorded ?Confirmed ?Type buspirone 5 mg tablet 5 mg PO BID PRN anxiety 01/16/24 02/06/24 History citalopram 40 mg tablet (Celexa) 40 mg PO DAILY 01/16/24 02/06/24 History phentermine 37.5 mg tablet 18.75 mg PO DAILY 01/16/24 02/06/24 History (Adipex-P) baclofen 10 mg tablet 10 mg PO TID PRN muscle spasm 01/30/24 02/06/24 History Allergies Allergy/AdvReac Type Severity Reaction Status Date / Time No Known Drug Allergies Allergy Verified 02/06/24 08:08 Exam Constitutional Documenting provider has reviewed patient's vital signs: yes Common normals: no apparent distress, oriented x3, healthy appearing, alert and well nourished General appearance: cooperative HENGA Common normals: normocephalic, hearing grossly normal bilaterally and moist oral mucous membranes Head and scalp: normocephalic Eye Common normals: PERRL Pupil: PERRL Neck & C-Spine Common normals: full ROM General: normal visual inspection Chest Common normals: inspection of chest normal Respiratory Common normals: normal respiratory effort, no retractions and no use of accessory muscles Back & Pelvis Lumbar spine/lower back: lumbar spinal tenderness (L3/4 loading positive, negative L5-s1 at this time ); ROM not limited and no pain with ROM Neuro Common normals: oriented x3, CN's II-XII intact bilaterally, moves all extremities, no focal motor deficits, no sensory deficits noted and deep tendon reflexes 2+ bilaterally Sensorium/orientation: alert Motor exam: strength 5/5 throughout and no movement abnormalities noted Psych Common normals: mental status grossly normal, thought process normal, cooperative, affect normal, speech normal and activity/motor behavior normal Speech: normal speech Thought process: normal thought process Results Additional Findings Additional findings: If on a controlled substance or opioids, I have checked an OARRS report on this patient and there are no aberrancies noted in the prescribing history.??If on a controlled substance or opioid a drug screen was completed and reviewed within the last year, and if there has not been a drug screen completed we ordered one today to monitor higher risk, state monitored pain medication use. As part of providing excellent, safe, comprehensive care, the following was completed at our patient's visit: 1. A medication reconciliation and review to ensure accurate knowledge of current/active medications, including asking our patients to inform us about any ocbg-mvf-zawlmpd medications or herbal remedies/nutritional supplements/alternative remedies. 2. A review to specifically ensure our patients have had annual screening for screening for depression, screening for tobacco use, and screening for unhealthy alcohol use. For concerning screenings had a discussion with the patient, provided patient education, and recommended follow-up with primary care provider when appropriate. If patient noted with a risk of falling, they received education on strength, gait, and balance training to prevent future risk of falling. Assessment and Plan Assessment and Plan (1) Lumbar spondylosis: (2) Myalgia: Plan pain well controlled with current regimen f/u 3 months, sooner if needed
--- OUTSIDE RECORDS SUMMARY | 2024-02-15 15:51 | XMS_ITS | CCD ---
Author Organization [facility] Care Team Providers Care Campus Director Name Role Phone Loida Joyce MD Primary [...] morning 90 tablet 3 07/06/2022 07/09/2023 Discontinued [id number] 0.3 ml EPINEPHrine 1 mg/ml auto-injector (5 [...] ORAL) Take by mouth. 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 08-23-2023 MAMM SCREENING BILATERAL W CAD MAMM [...] PM 1 b MAMM 1 YR Normal [facility] MR LUMBAR SPINE WO CONTon MR [...] Delon Luna on 05/11/2023 10:45 AM Normal [facility] Vital Signs Date Time Vital Sign Value Performing Clinician Lorriei gerardoy 06-14-2023 07:40-0400 Body height 171.5 cm Marlo Reeves MD Work Phone: [facility] 06-14-2023 07:40-0400 Body mass index (BMI) [Ratio] 24.69 kg/m2 Marlo Reeves MD Work Phone: [facility] 06-14-2023 07:40-0400 Body weight 72.58 kg Marlo Reeves MD Work Phone: [facility] 05-18-2023 10:31-0500 Body height 171.5 cm Kenny Porter DO Work Phone: [facility] 05-18-2023 10:31-0500 Body mass index (BMI) [Ratio] 24.72 kg/m2 Kenny Porter DO Work Phone: [facility] 05-18-2023 10:31-0500 Body weight 72.67 kg Kenny Porter DO Work Phone: [facility] 05-18-2023 10:31-0500 Diastolic blood pressure 78 mm[Hg] Kenny Porter DO Work Phone: [facility] 05-18-2023 10:31-0500 Systolic blood pressure 118 mm[Hg] Kenny Charlotte DO Work Phone: [facility] Encounters Encounter Date Encounter Type Care Provider Facility Start: 08-21-2023 End: 08-22-2023 ambulatory [place] Start: 07-09-2023 Refill Loida morrell MD Work Phone: [facility] Start: 06-14-2023 End: 06-14-2023 ambulatory [facility] Start: 06-14-2023 End: 06-14-2023 Office outpatient new 30 minutes Marlo Reeves MD Work Phone: [facility] Comment on above: 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); Severe back pain Start: 05-18-2023 End: 05-18-2023 ambulatory KENNY [facility]OR[facility] Start: 05-18-2023 Encounter for gynecological examination (general) (routine) without abnormal findings [facility] Start: 05-18-2023 End: 05-18-2023 Patient encounter status Kenny Porter DO Work Phone: [facility] Start: 05-18-2023 End: 05-18-2023 Periodic preventive med est patient 40-64yrs Kenny Porter DO Work Phone: [facility] Comment on above: Encounter for gyneco logical examination without abnormal finding (Primary Dx); Encounter for screening mammogram for malignant neoplasm of breast Start: 05-09-2023 End: 05-10-2023 ambulatory [facility] Start: 05-03-2023 Telephone encounter Erika Jovel [facility] Start: 05-01-2023 Telephone encounter Erika Staton [facility] Start: 03-20-2023 End: 04-03-2023 ambulatory [facility] Start: 12-27-2015 End: 10-24-2016 Patient encounter status Erika Jamie [facility] Work Phone: Procedures Date Procedure Procedure Detail Performing Clinician Start: 02-22-2023 Adult depression scr eening assessment Erika Ayala Start: 08-26-2022 Mammography Erika rodriguez Start: 03-31-2022 Microscopic observat ion [Identifier] in Cervix by Cyto stain Erika Ayala Plan of Treatment Date Care Activity Detail Author Start: 03-31-2025 Screening for malign ant neoplasm of cervix Pap Smear [facility] Start: 11-27-2024 DTaP,Tdap and Td Vaccines (2 - Td or Tdap) DTaP,Tdap and Td Vaccines (2 - Td or Tdap) [facility] Start: 09-19-2024 End: 09-19-2024 Patient encounter procedure 09/19/2024 10:00 AM EDT Office Visit [facility] [address] [place] [address] Kenny Porter, [address] [employer] [facility], [address] [place] [address] [facility] Start: 08-26-2024 Screening for malign ant neoplasm of breast Mammogram [facility] Start: 08-22-2024 End: 08-22-2024 Patient encounter procedure 08/22/2024 11:00 AM EDT [facility] [address] [place] [address] Kenny Porter, [facility], [address] [place] [address] [facility] Start: 06-13-2024 Adult BMI Screening Adult BMI Screen ing [facility] Start: 06-13-2024 Tobacco Screening Tobacco Screening [facility] Start: 05-18-2024 Adult BMI Screening Adult BMI Screen ing [facility] Start: 05-18-2024 Tobacco Screening Tobacco Screening [facility] Start: 02-23-2024 Adult BMI Screening Adult BMI Screen ing [facility] Start: 02-23-2024 Depression Screening Depression Scre ening [facility] Start: 02-23-2024 Tobacco Screening Tobacco Screening [facility] Start: 12-03-2023 Influenza vaccination Influenza Vacc ine [facility] Start: 08-21-2023 End: 08-21-2023 Patient encounter procedure 08/21/2023 3:30 PM EDT Appointment [facility] [address] [place] [address] [facility] - Mammography Start: 06-14-2023 End: 06-14-2023 Patient encounter procedure 06/14/2023 7:40 AM EDT Office Visit [facility] [address] [place] [address] [address] [place] [id number] Marlo Reeves MD [facility] [facility], [address] [address] [facility] [...] EST Office Visit [facility] [address] [place] [address] Charlotte Kenny CarranzaDO [address] [facility] [facility] [place] [address] [facility] Start: 05-09-2023 End: 05-09-2023 Patient encounter procedure 05/09/2023 9:15 PM EST Appointment [facility] [place] [address] [place] [id number] [facility] Start: 12-02-2022 COVID-19 Vaccine ( season) COVID-19 Vaccine ( season) [facility] Start: 12-02-2022 Influenza vaccination Influenza Vacc ine [facility] Immunizations Immunization Date Immunization Notes Care Provider Jerardo cruz 01-09-2018 influenza virus vaccine, unspecified formulation Erika Napalycia [facility] 12-14-2016 influenza virus vaccine, unspecified formulation [facility] 11-27-2014 tetanus toxoid, redu renato diphtheria toxoid, and acellular pertussis vaccine, adsorbed [facility] Payers Date Payer Category Payer Unknown [facility] [id number] 2021-Present [phone] [address] [address] [place] [address] [id number] 2021 Unknown [id number] 1975 Unknown [id number] 1975 Unknown [id number] 1975 Unknown [id number] 1975 Unknown [id number] 1975 Unknown [id number] Social History Date Type Detail Facility Start: 03-31-2022 [facility] Start: 03-31-2022 Tobacco use and exposure Smoke less tobacco non-user [facility] Start: 02-22-2023 End: 06-14-2023 Alcohol intake Current drinker of alcohol (finding) [facility] Start: 02-13-2020 End: 04-22-2020 History of Social function [facility] Start: 02-13-2020 End: 04-22-2020 Alcohol Use Disorder Identification Test - Consumption [AUDIT-C] [facility] How often to you hav e a drink containing alcohol? 2-4 times a month [facility] How many standard dr inks containing alcohol do you have on a typical day? 1 or 2 [facility] How often do you hav e 6 or more drinks on 1 occasion? Less than monthly [facility] Adolescent depressio n screening assessment 0 [facility] Start: 1975 Sex Assigned At Female P [facility] Start: 03-20-2021 Gender identity Identifies as female gender (finding) [facility] Start: 03-20-2021 Sexual orientation Heterosexual (fin ding) [facility] NEGATED: Highlighted rowStart: NINF History of tobacco use Passive smoker [facility] Clinical Notes 05-01-2023 to 06-14-2023 Marlo Reeves MD - 06/14/2023 7:40 AM EDTPatizohra Porter DO - 05/18/2023 10:30 AM ESTTelephone Encounter - Erika Ayala - 05/03/2023 11:29 AM EST Note Date & Type Note Facility 06-14-2023 History of Presen t illness Narrative [facility] [address] [facility] [address] CHART NOTE ? 06/14/2023 Patient: Ashley Smith 1975 [id number] Physician: Marlo Reeves MD Last encounter with [...] of her lumbar spine. 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 She has been reporting some lower back pain for the past 10 years or so. She denies any lower extremity symptoms. She has not done any pain management but she is done extensive physical therapy. 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 Denies any bowel or bladder dysfunction.Lumbar Spine [...] record of the patient encounter. Inadvertent computerized painting machine operator errors related to syntax, spelling, homophones, and/or inaudibility may be present. documented in this encounter [facility] 06-14-2023 Instructions Marlo Reeves MD - 06/14/2023 [...] doctor may have you work with a regional trainer, chiropractor or physical therapist to make a [...] your doctor. Where can I learn more? [employer] https://orthoinfo.org/en/recover y/ywyzd-ceiwlzycrhgi-srmtfvj/spi la-vpdpbmwnpjlh-tjqcfzw-pdf Last Reviewed Date 2020-06-18 Consumer Information Use [...] or approved for treating a specific patient. [employer] and its affiliates disclaim any warranty or liability relating to this information or the use thereof. The use of this information is governed by the Terms of Use, available at https://www.wolGuanriuwer.com/en /know/vcwcudil-umfppirzhlqhj-iws ms Copyright Copyright 2022 [employer]. and its affiliates and/or licensors. All rights reserved. Patient Education Patient Education Low back pain in adults The Basics Written by the doctors and editors at [facility] How worried should I be about low [...] This is when someone who knows traditional [place] Islander medicine inserts tiny needles into your body [...] process is complete. This topic retrieved from [employer] on: May 16, 2022. Topic 59311 Version 20.0 Release: 30.5.3 - C31.43 2022 [employer] and/or its affiliates. All rights reserved. figure 1: Anatomy of the back Low back pain can be caused by problems with the muscles, ligaments, discs, bones (vertebrae), or nerves. Often, back pain is caused by strains or sprains involving the muscles or ligaments. These problems cannot always be seen on imaging tests, such as MRI or CT scans. Graphic 42066 Version 5.0 Consumer Information Use and Disclaimer [...] or approved for treating a specific patient. [employer] and its affiliates disclaim any warranty or liability relating to this information or the use thereof.The use of this information is governed by the Terms of Use, available at https://www.EternoGenuwer.com/en /know/oesrnsdw-ckjoqzefmnhrc-jpg ms 2022 [employer]. and its affiliates and/or licensors. All rights reserved. Copyright 2022 [employer]. and/or its affiliates. All rights reserved. documented in this encounter [facility] 05-18-2023 History of Presen t illness Narrative [...] masses or organomegaly Vulva: normal, Bartholin's, Urethra, [place]'s normal Vagina: Vaginal Cuff:no Bleeding: no Discharge: [...] concerns, pt agreeable. documented in this encounter [facility] 05-03-2023 Miscellaneous Notes PT called to confirm that physical therapy documents were received. Appears we have that from [facility] in her chart. Please advise if there is anything else needed from the patient at this time. Thank you! Paperwork was faxed previously to pre cert documented in this encounter [facility] 05-03-2023 Telephone encounter Note PT called to confirm that physical therapy documents were received. Appears we have that from [facility] in her chart. Please advise if there is anything else needed from the patient at this time. Thank you! [facility] 05-03-2023 Telephone encounter Note Paperwork was faxed previously to pre cert [facility] 05-01-2023 Miscellaneous Notes Phil with [facility] pre-cert. called Asking for physical therapy notes that can be sent over on this patient before their upcoming MRI appt on May 09. Please fax to [phone]. Please advise. Thank you! Can you do [...] our office Paperwork was faxed over from [facility] and was faxed to pre cert as requested per verbal order documented in this encounter [facility] 05-01-2023 Telephone encounter Note Phil with [facility] pre-cert. called Asking for physical therapy notes that can be sent over on this patient before their upcoming MRI appt on May 09. Please fax to [phone]. Please advise. Thank you! [facility] 05-01-2023 Telephone encounter Note Can [...] our office Paperwork was faxed over from [facility] and was faxed to pre cert as requested per verbal order [facility] Evaluation note Diagnosis Encounter for gynecological examination without abnormal finding- Primary Encounter for screening mammogram for malignant neoplasm of breast documented in this encounter [facility]* Diagnosis Spondylosis of lumbar region without myelopathy or radiculopathy- Primary Severe back pain documented in this encounter [facility] SystemInstructionsNot on filedocumented in this encounter [facility] [employer] SystemInstructionsNot on filedocumented in this encounter [facility]ructions* Attachments The following attachments cannot be sent through Care Everywhere. * Gynecological Exam (Turkmen) [facility] for referral (narrative)* Consultation (Routine) - Pending Review Specialty Diagnoses / Procedures Referred By Maranda t Referred To Contact Pain Medicine Diagnoses Spondylosis of lumbar region without myelopathy or radiculopathy Marlo Reeves MD [address] [place] [address], [place] [address] Ludwin Alexander MD [address] [employer]PREH[employer]ING [place] [address] Referral ID Status Reason Start Date Expiration Date V isits Requested Visits Authorized [id number] Pending Review 06/14/2023 06/13/2024 1 1 [facility] Advance Directives No Advanced Directives Records FoundDocuments on File Type Date Recorded Patient Soda Room Operator Expl anation Advance Directive 05/06/2019 11:34 AM [facility] 05/06/2019 Documents on File Type Date Recorded Patient Soda Room Operator Expl anation Advance Directive 05/06/2019 11:34 AM ppgad 05/06/2019 Summary Purpose Family History No Family History Records FoundNo Family History Records Found Additional Source Comments Care Teams (unrecognized sec tion and content) Campus Director 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 Specialty Start Date End Date Loida Joyce MD [address] [place] [address], [address] [place] [address] PCP - General 02/22/13 Campus Director 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 Specialty Start Date End Date Loida Joyce MD [address] [place] [address], [address] [place] [address] PCP - General 02/22/13 Campus Director 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 Specialty Start Date End Date Loida Joyce MD [address] [place] [address], [address] [place] [address] PCP - General 02/22/13 Campus Director 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 Specialty Start Date End Date Loida Joyce MD [address] [place] [address], [address] [facility] [place] [address] PCP - General 02/22/13 Reason for Visit (unrecogniz ed section and content) Reason Comments Gynecologic Exam Reason Comments Pain Lumbar- pain stays i n back, minimal pain Specialty Diagnoses / Procedures Referred By Contac t Referred To Contact Orthopedic Surgery Diagnoses [place] [address] [place] [address], [address] [place] [address] Marlo Reeves MD [address] [place] [address], [address] [address] Referral ID Status Reason Start Date Expiration Date Visits Requested Visits Authorized [id number] Pending Review Specialty Services Required 05/12/2023 05/11/2024 1 1 Reason Comments Med Refill INFORMATION SOURCE (unrecogn ized section and content) DATE CREATED AUTHOR 06/15/2023 [facility] DATE CREATED AUTHOR AUTHOR'S YARELIS ATJO ANN 08/23/2023 [facility] FOR RECORDS PERTAINING TO PATIENTS WHO [...] BE BASED ON THE PRIMARY CLINICAL RECORDS. [employer] provides no warranty or guarantee of the accuracy or completeness of information in this document.
== END 2024-02-15 15:32 | disposition home or self-care (01) ==
LOC: PM 15:31
PROVIDERS: Visit Provider Nurse Practitioner
DX: M47.816 Spondylosis without myelopathy or radiculopathy, lumbar region (principal); M79.18 Myalgia, other site
CPT/HCPCS: G0463

== ENCOUNTER 2024-05-21 10:14 | Outpatient (OUT) | payer OTHER, SELFPAY ==
--- NOTE | 2024-05-21 | CONS_ITS ---
CONSULTATION DATE: 05/21/2024 TO: Luis Antonio Childress M.D. CHIEF COMPLAINT: Includes severe lower back pain bilaterally. HISTORY: Rated 2-7/10 pain, dull aching in character, sharp component, increased with activities with prolonged activities such standing, walking and performing transitioning maneuvers. She feels most comfortable in the semi- recumbent position. Denies any change in bowel and bladder habits or new sensorimotor change in the lower extremities. CURRENT MEDICATION: Includes baclofen 10 mg t.i.d. Her ELLEN on today?s visit is 22%. EXAMINATION: Notable for the patient having no clinical signs consistent with myelopathy or radiculopathy of the lower extremities. Patient did have significant pain with lumbar facet joint loading maneuvers occurring bilaterally, most severe at the L4-5, L5-S1 levels, with associated spasm of the lumbar paravertebral muscles. She has undergone a therapeutic L4-5, L5-S1 facet joint injection on 02/06/2024. She reports the pain was dramatically improved until recently, when she reports having recurrence of pain, not quite back to her baseline, but she did report the pain does alter her quality of life, level of functioning and, at times, her sleep pattern. 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 RECOMMENDATIONS: I have asked her to undergo denervation of the L4-5, L5-S1 facet joints bilaterally, which would require proceeding with an L3, L4 and L5 medial branch RFA. Her last RFA at the above mentioned levels was performed approximately six months ago or longer. I have gone over the details of the procedure with the patient. I have recommended the patient undergo this with the assistance of monitored anesthesia care. As part of providing excellent, safe, comprehensive care, the following was completed at our patient's visit: 1. A medication reconciliation and review to ensure accurate knowledge of current/active medications, including asking our patients to inform us about any gpyb-cxo-heweyor medications or herbal remedies/nutritional supplements/alternative remedies. 2. A review to specifically ensure our patients have had annual screening for: elevated body mass index (BMI, see intake chart for exact total), tobacco use, screening for depression, and screening for unhealthy alcohol use. When screening is concerning, patients are provided with education and the specific recommendation to discuss the concerning health issue and treatment options with their primary care provider. LUPE
--- OUTSIDE RECORDS SUMMARY | 2024-05-21 10:28 | XMS_ITS | CCD ---
Author Organization [facility] Care Team Providers Care Hotel Lobby Concierge Name Role Phone MARLO REEVES Attending Unavailable LOIDA JOYCE Referring Unavailable LOIDA JOYCE Primary Care Unavailable SUHAS BAE Referring Unavailable LOIDA JOYCE Primary Care Unavailable KENNY PORTER Referring Unavailable OLIDA JOYCE Primary Care Unavailable SUHAS BAE Referring Unavailable MARIA DEL CARMEN, LOIDA Primary Care Unavailable KENNY PORTER S Attending Unavailable ROSANNA JOYCEORAH Referring Unavailable ROSANNA JOYCEORAH Primary Care Unavailable Maria Del Carmen VERA, Loida Primary Care Provider Medications Current Medications Medication Drug Class(es) Dates [...] morning 90 tablet 3 07/06/2022 07/09/2023 Discontinued [id number] 0.3 ml EPINEPHrine 1 mg/ml auto-injector (5 [...] ORAL) Take by mouth. 0 Active omega 8-ody-enb-fish oil (Fish OiL) 300-1,000 mg capsule (5 [...] mental disorders or infectious disease) (2 sources) Encounter for screening mammogram for malignant neoplasm of breast; Translations: [Patient encounter status] Onset: 08-21-2023 05-18-2023 Episodic Residual codes; unclassified (1 source) Pain Onset: 06-14-2023 Episodic Spondylosis; intervertebral disc disorders; other back problems (2 sources) Spondylosis without myelopathy or radiculopathy, lumbar region; Translations: [Lumbar spondylosis] Onset: 06-14-2023 06-14-2023 Chronic Unclassified (1 source) [...] disc disorders; other back problems (3 sources) Dorsalgia, unspecified; Translations: [Backache] Onset: 03-20-2023 06-14-2023 Episodic Results Test Name Value Interpretation Reference Range Facil ity MAMM SCREENING BILATERAL W C [place] 08-23-2023 MAMM SCREENING BILATERAL W CAD MAMM [...] PM 1 b MAMM 1 YR Normal [facility] MR LUMBAR SPINE WO CONTon MR LUMBAR [...] Delon Luna on 05/11/2023 10:45 AM Normal [facility] Vital Signs Date Time Vital Sign Value Performing Clinician Lorriei gerardoy 06-14-2023 07:40-0400 Body height 171.5 cm Marlo Reeves MD Work Phone: [facility] 06-14-2023 07:40-0400 Body mass index (BMI) [Ratio] 24.69 kg/m2 Marlo Reeves MD Work Phone: [facility] 06-14-2023 07:40-0400 Body weight 72.58 kg Marlo Reeves MD Work Phone: [facility] 05-18-2023 10:31-0500 Body height 171.5 cm Kenny Porter DO Work Phone: [facility] 05-18-2023 10:31-0500 Body mass index (BMI) [Ratio] 24.72 kg/m2 Kenny Porter DO Work Phone: [facility] 05-18-2023 10:31-0500 Body weight 72.67 kg Kenny Porter DO Work Phone: [facility] 05-18-2023 10:31-0500 Diastolic blood pressure 78 mm[Hg] Kenny Porter DO Work Phone: [facility] 05-18-2023 10:31-0500 Systolic blood pressure 118 mm[Hg] Kenny Charlotte DO Work Phone: [facility] Encounters Encounter Date Encounter Type Care Provider Facility Start: 08-21-2023 End: 08-22-2023 ambulatory BUCKEYE Dillon [facility] Start: 07-09-2023 Refill Loida morrell MD Work Phone: [facility] Start: 06-14-2023 End: 06-14-2023 ambulatory [facility] Start: 06-14-2023 End: 06-14-2023 Office outpatient new 30 minutes Marlo Reeves MD Work Phone: [facility] Comment on above: 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); Severe back pain Start: 05-18-2023 End: 05-18-2023 ambulatory KENNY Dillon PORTER [facility] Start: 05-18-2023 Encounter for gynecological examination (general) (routine) [facility]: 05-18-2023 End: 05-18-2023 Patient encounter status Kenny Porter DO Work Phone: [facility] Start: 05-18-2023 End: 05-18-2023 Periodic preventive med est patient 40-64yrs Kenny Porter DO Work Phone: [facility] Comment on above: Encounter for gyneco logical examination without abnormal finding (Primary Dx); Encounter for screening mammogram for malignant neoplasm of breast Start: 05-09-2023 End: 05-10-2023 ambulatory [facility] Start: 05-03-2023 Telephone encounter Erika Jovel [facility] Start: 05-01-2023 Telephone encounter Erika Staton [facility] Start: 03-20-2023 End: 04-03-2023 ambulatory [facility] Start: 12-27-2015 End: 10-24-2016 Patient encounter status Erika Jamie [facility] Work Phone: Procedures Date Procedure Procedure Detail Performing Clinician Start: 02-22-2023 Adult depression scr eening assessment Erika Ayala Start: 08-26-2022 Mammography Erika rodriguez Start: 03-31-2022 Microscopic observat ion [Identifier] in Cervix by Cyto stain Erika Ayala Plan of Treatment Date Care Activity Detail Author Start: 03-31-2025 Screening for malign ant neoplasm of cervix Pap Smear [facility] Start: 11-27-2024 DTaP,Tdap and Td Vaccines (2 - Td or Tdap) DTaP,Tdap and Td Vaccines (2 - Td or Tdap) [facility] Start: 09-19-2024 End: 09-19-2024 Patient encounter procedure 09/19/2024 10:00 AM EDT Office Visit [facility] [address] [place] [address] Kenny Porter, [address] [employer] [facility], [address] [place] [address] [facility] Start: 08-26-2024 Screening for malign ant neoplasm of breast Mammogram [facility] Start: 08-22-2024 End: 08-22-2024 Patient encounter procedure 08/22/2024 11:00 AM EDT [facility] [address] [place] [address] Kenny Porter, [facility], [address] [place] [address] [facility] Start: 06-13-2024 Adult BMI Screening Adult BMI Screen ing [facility] Start: 06-13-2024 Tobacco Screening Tobacco Screening [facility] Start: 05-18-2024 Adult BMI Screening Adult BMI Screen ing [facility] Start: 05-18-2024 Tobacco Screening Tobacco Screening [facility] Start: 02-23-2024 Adult BMI Screening Adult BMI Screen ing [facility] Start: 02-23-2024 Depression Screening Depression Scre ening [facility] Start: 02-23-2024 Tobacco Screening Tobacco Screening [facility] Start: 12-03-2023 Influenza vaccination Influenza Vacc ine [facility] Start: 08-21-2023 End: 08-21-2023 Patient encounter procedure 08/21/2023 3:30 PM EDT Appointment [facility] [address] [place] [address] [facility] - M[facility]ography Start: 06-14-2023 End: 06-14-2023 Patient encounter procedure 06/14/2023 7:40 AM EDT Office Visit [facility] [address] [place] [address] [address] [place] [id number] Marlo Reeves MD [facility] [facility], [address] [address] [facility] [...] EST Office Visit [facility] [address] [place] [address] [place] Kenny CarranzaDO [address] [facility] [place] [address] [facility] Start: 05-09-2023 End: 05-09-2023 Patient encounter procedure 05/09/2023 9:15 PM EST Appointment [facility] [place] [id number] [facility] Start: 12-02-2022 COVID-19 Vaccine ( season) COVID-19 Vaccine ( season) [facility] Start: 12-02-2022 Influenza vaccination Influenza Vacc ine [facility] Immunizations Immunization Date Immunization Notes Care Provider Fa ciliabril 01-09-2018 influenza virus vaccine, unspecified formulation Erika Napalycia [facility] 12-14-2016 influenza virus vaccine, unspecified formulation [facility] 11-27-2014 tetanus toxoid, redu renato diphtheria toxoid, and acellular pertussis vaccine, adsorbed [facility] Payers Date Payer Category Payer Unknown [id number] 2021 Unknown [employer] [facility] [id number] 2021-Present [phone] [address] [address] [place] [address] [id number] 1975 Unknown [id number] 1975 Unknown [id number] 1976 Unknown [id number] 1975 Unknown [id number] 1975 Unknown [id number] Social History Date Type Detail Facility Start: 03-31-2022 [facility] Start: 03-31-2022 Tobacco use and exposure Smoke less tobacco non-user [facility] Start: 02-22-2023 End: 06-14-2023 Alcohol intake Current drinker of alcohol (finding) [facility] Start: 02-13-2020 End: 04-22-2020 History of Social function [facility] Start: 02-13-2020 End: 04-22-2020 Alcohol Use Disorder Identification Test - Consumption [AUDIT-C] [facility] How often to you hav e a drink containing alcohol? 2-4 times a month [facility] How many standard dr inks containing alcohol do you have on a typical day? 1 or 2 [facility] How often do you hav e 6 or more drinks on 1 occasion? Less than monthly [facility] Adolescent depressio n screening assessment 0 [facility] Start: 1975 Sex Assigned At Female [facility] Start: 03-20-2021 Gender identity Identifies as female gender (finding) [facility] Start: 03-20-2021 Sexual orientation Heterosexual (fin ding) [facility] NEGATED: Highlighted rowStart: NINF History of tobacco use Passive smoker [facility] Clinical Notes 05-01-2023 to 06-14-2023 Marlo Reeves MD - 06/14/2023 7:40 AM EDTPatizohra Porter DO - 05/18/2023 10:30 AM ESTTelephone Encounter - Erika Ayala - 05/03/2023 11:29 AM EST Note Date & Type Note Facility 06-14-2023 History of Presen t illness Narrative [facility] [address] [facility] [address] CHART NOTE ? 06/14/2023 Patient: Ashley Smith 1975 [id number] Physician: Marlo Reeves MD Last encounter with [...] of her lumbar spine. 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 She has been reporting some lower back pain for the past 10 years or so. She denies any lower extremity symptoms. She has not done any pain management but she is done extensive physical therapy. 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 Denies any bowel or bladder dysfunction.Lumbar [...] record of the patient encounter. Inadvertent computerized chief nurse errors related to syntax, spelling, homophones, and/or inaudibility may be present. documented in this encounter [facility] 06-14-2023 Instructions Marlo Reeves MD - 06/14/2023 [...] doctor may have you work with a staff trainer, chiropractor or physical therapist to make [...] your doctor. Where can I learn more? [employer] [employer] https://orthoinfo.org/en/recover y/utiwo-fhuccxpfqeen-eshnipf/spi cg-gvzyhdmbuuvt-dfyitqj-pdf Last Reviewed Date 2020-06-18 Consumer Information Use [...] or approved for treating a specific patient. [employer] and its affiliates disclaim any warranty or liability relating to this information or the use thereof. The use of this information is governed by the Terms of Use, available at https://www.wolNuMat Technologiesuwer.com/en /know/clmgiuxp-sznkivvtsmvsc-hht ms Copyright Copyright 2022 [employer] and its affiliates and/or licensors. All rights reserved. Patient Education Patient Education Low back pain in adults The Basics Written by the doctors and editors at [facility] How worried should I be about [...] This is when someone who knows traditional [place] medicine inserts tiny needles into your body [...] process is complete. This topic retrieved from [employer] on: May 16, 2022. Topic 26112 Version 20.0 Release: 30.5.3 - C31.43 2022 [employer] and/or its affiliates. All rights reserved. figure 1: Anatomy of the back Low back pain can be caused by problems with the muscles, ligaments, discs, bones (vertebrae), or nerves. Often, back pain is caused by strains or sprains involving the muscles or ligaments. These problems cannot always be seen on imaging tests, such as MRI or CT scans. Graphic 97778 Version 5.0 Consumer Information Use and Disclaimer [...] or approved for treating a specific patient. [employer] and its affiliates disclaim any warranty or liability relating to this information or the use thereof.The use of this information is governed by the Terms of Use, available at https://www.Lumos Pharmauwer.com/en /know/rmibemvl-lwrqmrvywxrvz-pyp ms 2022 [employer] and its affiliates and/or licensors. All rights reserved. Copyright 2022 [employer] and/or its affiliates. All rights reserved. documented in this encounter [facility] 05-18-2023 History of Presen t illness Narrative [...] masses or organomegaly Vulva: normal, Bartholin's, Urethra, Captain Cook's normal Vagina: Vaginal Cuff:no Bleeding: no Discharge: [...] concerns, pt agreeable. documented in this encounter [facility] 05-03-2023 Miscellaneous Notes PT called to confirm that physical therapy documents were received. Appears we have that from [facility] in her chart. Please advise if there is anything else needed from the patient at this time. Thank you! Paperwork was faxed previously to pre cert documented in this encounter [facility] 05-03-2023 Telephone encounter Note PT called to confirm that physical therapy documents were received. Appears we have that from [facility] in her chart. Please advise if there is anything else needed from the patient at this time. Thank you! [facility] 05-03-2023 Telephone encounter Note Paperwork was faxed previously to pre cert [facility] 05-01-2023 Miscellaneous Notes Phil with [facility] pre-cert. called Asking for physical therapy notes that can be sent over on this patient before their upcoming MRI appt on May 09. Please fax to [phone]. Please advise. Thank you! Can you do [...] our office Paperwork was faxed over from [facility] and was faxed to pre cert as requested per verbal order documented in this encounter [facility] 05-01-2023 Telephone encounter Note Phil with [facility] pre-cert. called Asking for physical therapy notes that can be sent over on this patient before their upcoming MRI appt on May 09. Please fax to [phone]. Please advise. Thank you! [facility] 05-01-2023 Telephone encounter Note Can you do [...] our office Paperwork was faxed over from [facility] and was faxed to pre cert as requested per verbal order [employer] Evaluation note Diagnosis Encounter for gynecological examination without abnormal finding- Primary Encounter for screening mammogram for malignant neoplasm of breast documented in this encounter [facility] System[facility] note* Diagnosis Spondylosis of lumbar region without myelopathy or radiculopathy- Primary Severe back pain documented in this encounter [facility] SystemInstructionsNot on filedocumented in this encounter [facility] SystemInstructionsNot on filedocumented in this encounter [facility] SystemInstructions* Attachments The following attachments cannot be sent through Care Everywhere. 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 Marlo Reeves MD [address] [place] [address], [place] [address] Ludwin Alexander MD [address] [employer] [place] [address] Referral ID Status Reason Start Date Expiration Date V isits Requested Visits Authorized [id number] Pending Review 06/14/2023 06/13/2024 1 1 [employer] Summary Purpose Family History No Family History Records FoundNo Family History Records Found Advance Directives Documents on File Type Date Recorded 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 Advance Directive 05/06/2019 11:34 AM ppgad 05/06/2019 Documents on File Type Date Recorded 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 Advance Directive 05/06/2019 11:34 AM ppgad 05/06/2019 Additional Source Comments INFORMATION SOURCE (unrecogn ized section and content) DATE CREATED AUTHOR 06/15/2023 [facility] DATE CREATED AUTHOR AUTHOR'S ORGANIZ ATION 08/23/2023 [facility] Care Teams (unrecognized sec tion and content) Hotel Lobby Concierge 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 Specialty Start Date End Date Loida Joyce MD [address] [place] [address], [address] [place] [address] PCP - General 02/22/13 Hotel Lobby Concierge 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 Specialty Start Date End Date Loida Joyce MD [address] [place] [address], [address] [place] [address] PCP - General 02/22/13 Hotel Lobby Concierge 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 Specialty Start Date End Date Loida Joyce MD [address] [place] [address], [address] [place] [address] PCP - General 02/22/13 Hotel Lobby Concierge 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 Specialty Start Date End Date Loida Joyce MD [address] [place] [address], [address] [place] [address] PCP - General 02/22/13 Reason for Visit (unrecogniz ed section and content) Reason Comments Gynecologic Exam Reason Comments Pain Lumbar- pain stays i n back, minimal pain Specialty Diagnoses / Procedures Referred By Contac t Referred To Contact Orthopedic Surgery Diagnoses Severe back pain Loida Joyce MD [address] [facility], [address] [place] [address] Marlo Reeves MD [facility] [facility], [address] [address] Referral ID Status Reason Start Date Expiration Date Visits Requested Visits Authorized [id number] Pending Review Specialty Services Required 05/12/2023 05/11/2024 1 1 Reason Comments Med Refill FOR RECORDS PERTAINING TO PATIENTS WHO ARE [...] BE BASED ON THE PRIMARY CLINICAL RECORDS. [facility] [employer] provides no warranty or guarantee of the accuracy or completeness of information in this document.
== END 2024-05-21 10:15 | disposition home or self-care (01) ==
LOC: PM 10:18
PROVIDERS: Visit Provider Anesthesiology Pain Medicine
DX: M47.816 Spondylosis without myelopathy or radiculopathy, lumbar region (principal)
CPT/HCPCS: G0463

== ENCOUNTER 2024-07-29 06:25 | Day surgery (SDC) | payer OTHER, SELFPAY ==
[2024-07-29 06:49] VITALS: BP 119/73; PULSE 66; TEMP 37; O2SAT 99
[2024-07-29 06:51] LABS: HCG Qualitative NEGATIVE (NEGATIVE); Internal Control Within Normal Limits
[2024-07-29] MEDS: 0.9 % SODIUM CHLORIDE 500 ML IV (07:08)
[2024-07-29] MEDS: BUPIVACAINE HCL 0.25% PF 25 MG/10 ML VIAL 8 ML INJ (07:38)
[2024-07-29] MEDS: METHYLPREDNISOLONE ACETATE 40 MG/ML VIAL INJ (07:38)
[2024-07-29] MEDS: LIDOCAINE HCL 2% 400 MG/20 ML MDV 10 ML INJ (07:38)
[2024-07-29 08:11] VITALS: BP 108/73; PULSE 70; TEMP 36.5; O2SAT 99
[2024-07-29 08:17] VITALS: BP 113/68; PULSE 68; TEMP 36.5; O2SAT 99
--- NOTE | 2024-08-06 09:33 | W.PM.PROCNOT ---
Date of procedure: 07/29/24 Pre-op diagnosis: LUMBAR SPONDYLOSIS Post-op diagnosis: same as pre-op Procedure: Bilateral lumbar 4-5, 5-Sacral 1 Radiofrequency ablation Under fluoroscopic guidance Rhizotomy was created using radio frequency ablation at 80?C for 90 seconds 1 to 2 lesions created at each site. Post lesioning injection of 2 mL each of 0.25% Marcaine and 2% lidocaine with Depo-Medrol 40mg. 0.5 to 1 mL injected at each site IV in place yes If Intravenous fluids: NS at KVO Anesthesia local 2% lidocaine for Anesthesia Other: MAC Timeout process compliant After informed consent obtained.Patient brought to the procedure room placed in the prone position skin overlying the area was prepped and draped in a sterile fashion using betadine. 25 gauge needle was used to create a skin wheal over each of the targeted areas utilizing 2% lidocaine. A rhizotomy needle with a 10 mm active tip was inserted over each of the anesthetized areas and directed towards each of the medial branches accomplished under fluoroscopic guidance. after encountering the same we had positive sensory stimulation, negative motor stimulation was noted. lesions were then created. Post lesioning, steroid solution was injected needles removed. Patient was transferred to recovery room in stable condition to be discharged home after meeting criteria. Anesthesia: MAC Surgeon: Toma Thompson Condition: stable Disposition: PACU
== END 2024-07-29 09:02 | disposition home or self-care (01) ==
LOC: SURGOUT 06:26
PROVIDERS: Visit Provider Anesthesiology Pain Medicine
PROC: (CPT 1992; principal; 2024-07-29 07:30)
DX: M47.816 Spondylosis without myelopathy or radiculopathy, lumbar region (principal)
CPT/HCPCS: 36415; 64635; 64636; 84703; J0665; J1010; J2704

== ENCOUNTER 2024-08-28 09:59 | Outpatient (OUT) | payer OTHER, SELFPAY ==
--- OUTSIDE RECORDS SUMMARY | 2024-08-28 10:17 | XMS_ITS | CCD ---
Author Organization [facility] Care Team Providers Care [employer] Name Role Phone MARLO REEVES Attending Unavailable LOIDA JOYCE Referring Unavailable LOIDA JOYCE Primary Care Unavailable SUHAS VALENTE Referring Unavailable JOSECH, LOIDA Primary Care Unavailable CHARLOTTEKENNY Sandoval S Referring Unavailable JOSECH, LOIDA Primary Care Unavailable SUHAS VALENTE Referring Unavailable MARIA DEL CARMEN, LOIDA Primary Care Unavailable CHARLOTTE, KENNY S Attending Unavailable MARIA DEL CARMEN, LOIDA Referring Unavailable MARIA DEL CARMEN, LOIDA Primary Care Unavailable Loida Joyce MD Primary Care Provider rGegoria Mathews Primary Care Provider Reyes VERA, Amada Dubon Attending Unavailable Medications Current Medications Medication Drug Class(es) Dates Sig (Normalized) Sig (Original) busPIRone hydrochloride 5 mg oral tablet (6 sources) Start: 05-31-2021 take 1 tablet by mouth three times daily busPIRone (BUSPAR) 5 mg tablet Take 1 tablet (5 mg total) by mouth 3 (three) times a day. 30 tablet 05/31/2021 Active citalopram 40 mg oral tablet (7 sources) Serotonin Reuptake Inhibitor Start: 07-09-2023 take [...] morning 90 tablet 3 07/06/2022 07/09/2023 Discontinued [id number] 0.3 ml EPINEPHrine 1 mg/ml auto-injector (6 sources) alpha-Adrenergic Agonist, beta-Adrenergic Agonist, Catecholamine Start: 11-30-2022 EPINEPHrine (EPIP EN) 0.3 mg/0.3 mL auto-injector Inject 0.3 mL (0.3 mg total) into the appropriate muscle as needed (for sevre allergy). 2 each 11/30/2022 Active Lactobac no.41/Bifidobact no.7 (PROBIOTIC-10 ORAL) (6 sources) Lactobac no.41/Bifidobact no.7 (PROBIOTIC-10 ORAL) Take by mouth. Active Lactobac no.41/B ifidobact no.7 (PROBIOTIC-10 ORAL) Take by mouth. 0 Active MULTIVIT-MINERALS/FERROUS FU M (MULTI VITAMIN ORAL) (6 sources) MULTIVIT-MINERAL S/FERROUS FUM (MULTI VITAMIN ORAL) Take by mouth. Active MULTIVIT-MINERAL S/FERROUS FUM (MULTI VITAMIN ORAL) Take by mouth. 0 Active omega 9-zli-jzp-fish oil (Fi sh OiL) 300-1,000 mg capsule (6 sources) omega 3-dha-epa- fish oil (Fish OiL) 300-1,000 mg capsule Take by mouth. Active omega 3-dha-epa- fish oil (Fish OiL) 300-1,000 mg capsule Take by mouth. 0 Active Problems Active Problems Problem Classification Problem Date Documented Date Episodic/Chronic Coagulation and hemorrhagic disorders (6 sources) Thrombocytopenic disorder; Translations: [Thrombocytopenia, unspecified] Onset: 05-06-2019 05-06-2019 Chronic Other nervous system disorders (1 source) Other chronic pain; Translations: [Other chronic pain] Onset: 03-20-2023 Chronic Other screening for suspected conditions (not mental disorders or infectious disease) (3 sources) Encounter for screening mammogram for malignant [...] Date Documented Da te Episodic/Chronic Mood disorders (6 sources) Mood disorders Onset: 02-22-2023 02-22-2023 Other nervous system disorders (6 sources) Other symptoms and signs involving cognitive functions and awareness; Translations: [Other signs and symptoms involving cognition] Onset: 12-27-2015 12-27-2015 Episodic Other skin disorders (6 sources) Epidermoid cyst; Translations: [Epidermal cyst] Onset: 07-19-2017 07-19-2017 Episodic Residual codes; unclassified (6 sources) Mild memory disturbance ; Translations: [Other amnesia] Onset: 12-27-2015 12-27-2015 Episodic Spondylosis; intervertebral disc disorders; other back problems (3 sources) Dorsalgia, unspecified; Translations: [Backache] Onset: 03-20-2023 06-14-2023 Episodic Results Test Name Value Interpretation Reference Range Facil ity MAMM SCREENING BILATERAL W C dispensing audiologist 08-23-2023 MAMM SCREENING BILATERAL W CAD MAMM [...] PM 1 b MAMM 1 YR Normal [facility] MR LUMBAR SPINE WO CONTon MR [...] Delon Luna on 05/11/2023 10:45 AM Normal [facility] Vital Signs Date Time Vital Sign Value Performing Clinician Jamal dorman 06-14-2023 07:40-0400 Body height 171.5 cm Marlo Reeves MD Work Phone: [facility] 06-14-2023 07:40-0400 Body mass index (BMI) [Ratio] 24.69 kg/m2 Marlo Reeves MD Work Phone: [facility] 06-14-2023 07:40-0400 Body weight 72.58 kg Marlo Reeves MD Work Phone: [facility] 05-18-2023 10:31-0500 Body height 171.5 cm Kenny Porter DO Work Phone: [facility] 05-18-2023 10:31-0500 Body mass index (BMI) [Ratio] 24.72 kg/m2 Kenny Mayerkett DO Work Phone: [facility] 05-18-2023 10:31-0500 Body weight 72.67 kg Kenny Mayerkett DO Work Phone: [facility] 05-18-2023 10:31-0500 Diastolic blood pressure 78 mm[Hg] Kenny Mayerkett DO Work Phone: [facility] 05-18-2023 10:31-0500 Systolic blood pressure 118 mm[Hg] Kennydg MayerBromley DO Work Phone: [facility] Encounters Encounter Date Encounter Type Care Provider Facility Start: 08-05-2024 End: 08-05-2024 Telephone encounter Kenny Porter DO Work Phone: [facility] Start: 07-29-2024 End: 07-29-2024 ambulatory Amada Chambers MD Facility:[facility] Start: 08-21-2023 End: 08-22-2023 ambulatory KENNYDG PORTER [facility] Start: 07-09-2023 Refill Loida morrell MD Work Phone: [facility] Start: 06-14-2023 End: 06-14-2023 ambulatory [facility] Start: 06-14-2023 End: 06-14-2023 Office outpatient new 30 minutes Marlo Reeves MD Work Phone: [facility] Comment on above: 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); Severe back pain Start: 05-18-2023 End: 05-18-2023 ambulatory KENNY PORTER [facility] Start: 05-18-2023 Encounter for gynecological examination (general) (routine) without abnormal findings KENNY Carranza [place]TE [facility] Start: 05-18-2023 End: 05-18-2023 Patient encounter status Kenny Porter DO Work Phone: [facility] Start: 05-18-2023 End: 05-18-2023 Periodic preventive med est patient 40-64yrs Kenny Porter DO Work Phone: [facility] Comment on above: Encounter for gyneco logical examination without abnormal finding (Primary Dx); Encounter for screening mammogram for malignant neoplasm of breast Start: 05-09-2023 End: 05-10-2023 ambulatory [facility] Start: 05-03-2023 Telephone encounter Erika Falcon i [facility] Start: 05-01-2023 Telephone encounter Erika Falcon i [facility] Start: 03-20-2023 End: 04-03-2023 [facility] Start: 12-27-2015 End: 10-24-2016 Patient encounter status Erika Ayala [facility] Work Phone: Procedures Date Procedure Procedure Detail Performing Clinician Start: 08-21-2023 Mammography Kenny hawley DO Work Phone: Start: 02-22-2023 Adult depression scr eening assessment Erika Ayala Start: 08-26-2022 Mammography Erika rodriguez Start: 03-31-2022 Microscopic observat ion [Identifier] in Cervix by Cyto stain Erika Ayala Plan of Treatment Date Care Activity Detail Author Start: 08-20-2025 Screening for malign ant neoplasm of breast Mammogram [facility] Start: 03-31-2025 Screening for malign ant neoplasm of cervix Pap Smear [facility] Start: 12-02-2024 Influenza vaccination Influenza Vacc ine [facility] Start: 11-27-2024 DTaP,Tdap and Td Vaccines (2 - Td or Tdap) DTaP,Tdap and Td Vaccines (2 - Td or Tdap) [facility] Start: 10-31-2024 End: 10-31-2024 Patient encounter procedure 10/31/2024 10:45 AM EDT Office Visit [facility] [address] [place] [phone] Kenny Porter, [address] [place] [address] [facility] Start: 09-19-2024 End: 09-19-2024 Patient encounter procedure 09/19/2024 10:00 AM EDT Office Visit [facility] [address] [place] [phone] Kenny Porter, [address], [address] [place] [address] [facility] Start: 09-18-2024 End: 09-18-2024 Patient encounter procedure 09/18/2024 10:00 AM EDT Appointment [facility] - [facility] [address] [facility] [place] [phone] [facility] - [facility] Start: 08-26-2024 Screening for malign ant neoplasm of breast Mammogram [facility] Start: 08-22-2024 End: 08-22-2024 Patient encounter procedure 08/22/2024 11:00 AM EDT Office Visit [facility] [address] [place] [address] Kenny Porter, [address] [place] [address] [facility] Start: 08-20-2024 Adult BMI Screening Adult BMI Screen ing [facility] Start: 08-05-2024 End: 08-05-2025 DBT Breast - bilateral screening Mammography screening bilateral with CAD Imaging Routine Screening mammogram for breast cancer Expected: 08/05/2024, Expires: 08/05/2025 [facility] Work Phone: Comment on above: Expected: 08/05/2024 , Expires: 08/05/2025 Start: 06-13-2024 Adult BMI Screening Adult BMI Screen ing [facility] Start: 06-13-2024 Tobacco Screening Tobacco Screening [facility] Start: 05-18-2024 Adult BMI Screening Adult BMI Screen ing [facility] Start: 05-18-2024 Tobacco Screening Tobacco Screening [facility] Start: 02-23-2024 Adult BMI Screening Adult BMI Screen ing [facility] Start: 02-23-2024 Depression Screening Depression Scre ening [facility] Start: 02-23-2024 Tobacco Screening Tobacco Screening [facility] Start: 12-03-2023 COVID-19 Vaccine ( season) COVID-19 Vaccine ( season) [facility] Start: 12-03-2023 Influenza vaccination Influenza Vacc ine [facility] Start: 08-21-2023 End: 08-21-2023 Patient encounter procedure 08/21/2023 3:30 PM EDT Appointment [facility] - Mammography [address] [id number] [facility] Start: 06-14-2023 End: 06-14-2023 Patient encounter procedure 06/14/2023 7:40 AM EDT Office Visit [facility] [address] [facility] [address] [place] [address] Mralo Reeves MD [address] [facility], [address] [address] [facility] Start: 05-18-2023 End: 05-18-2024 DBT Breast - bilateral screening Mammography screening bilateral with CAD Imaging Routine Encounter for screening mammogram for malignant neoplasm of breast Expected: 05/18/2023, Expires: 05/18/2024 Med Work Phone: Comment on above: Expected: 05/18/2023 , Expires: 05/18/2024 Start: 05-18-2023 End: 05-18-2023 Patient encounter procedure 05/18/2023 10:30 AM EST Office Visit [facility] [address] [facility] [address] [place] [phone] [place] Kenny Carranza, [facility] [facility], [address] [place] [address] [facility] Start: 05-09-2023 End: 05-09-2023 Patient encounter procedure 05/09/2023 9:15 PM EST Appointment [facility] [place] [address] [place] [address] [facility] Start: 12-02-2022 COVID-19 Vaccine ( season) COVID-19 Vaccine ( season) [facility] Start: 12-02-2022 Influenza vaccination Influenza Vacc ine [facility] Start: 02-01-1994 Adult BMI Follow Up Plan Adult BMI Follow Up Plan [facility] Immunizations Immunization Date Immunization Notes Care Provider Fa anthony 01-09-2018 influenza virus vaccine, unspecified formulation Erika Jamie [facility] 12-14-2016 influenza virus vaccine, unspecified formulation Erikanhi Ayala [facility] 11-27-2014 tetanus toxoid, redu renato diphtheria toxoid, and acellular pertussis vaccine, adsorbed Erika Receeptvictor hugo [facility] Payers Date Payer Category Payer Managed Care Other (unspecified) [employer] [id number] 2021 Unknown [id number] 2021 Unknown [id number] 1975 Unknown [id number] 1976 Unknown [id number] 1976 Unknown [id number] 1976 Unknown [id number] 1976 Unknown [id number] 1975 Unknown [id number] Social History Date Type Detail Facility Start: 03-31-2022 Tobacco smoking stat [facility] Never smoked tobacco [facility] Start: 03-31-2022 Tobacco use and exposure Smoke less tobacco non-user [facility] Start: 02-22-2023 End: 08-21-2023 Alcohol intake Current drinker of alcohol (finding) [facility] Start: 02-13-2020 End: 04-22-2020 History of Social function [facility] Start: 02-13-2020 End: 04-22-2020 Alcohol Use Disorder Identification Test - Consumption [AUDIT-C] [facility] How often to you hav e a drink containing alcohol? 2-4 times a month [facility] How many standard dr inks containing alcohol do you have on a typical day? 1 or 2 [facility] How often do you hav e 6 or more drinks on 1 occasion? Less than monthly [facility] Adolescent depressio n screening assessment 0 [facility] Start: 1975 Sex Assigned At Female P [facility] Start: 03-20-2021 Gender identity Identifies as female gender (finding) [facility] Start: 03-20-2021 Sexual orientation Heterosexual (fin ding) [facility] Start: 11-04-2014 Sex Female (finding) [facility] NEGATED: Highlighted rowStart: NINF History of tobacco use Passive smoker [facility] Clinical Notes 05-01-2023 to 08-05-2024 Telephone Encounter - Christina Jnug - 08/05/2024 10:51 AM EDTTelephone Encounter - Zeina Bloom CMA - 08/05/2024 10:51 AM EDTTelephone Encounter - Christina Jung - 08/05/2024 10:51 AM EDT Note Date & Type Note Facility 08-05-2024 Miscellaneous Notes Central scheduling needs a mammogram screening order placed. Mammogram order placed Zeina documented in this encounter [facility] 08-05-2024 Telephone encounter Note Central scheduling needs a mammogram screening order placed. [facility] 08-05-2024 Telephone encounter Note Mammogram order placed Zeina [facility] 06-14-2023 History of Presen t illness Narrative [facility] [address] [facility] [address] CHART NOTE ? 06/14/2023 Patient: Ashley Smith [id number] Physician: Marlo Reeves MD Last encounter with [...] of her lumbar spine. 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 She has been reporting some lower back pain for the past 10 years or so. She denies any lower extremity symptoms. She has not done any pain management but she is done extensive physical therapy. 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 Denies any bowel or bladder dysfunction.Lumbar [...] record of the patient encounter. Inadvertent computerized floor finisher helper errors related to syntax, spelling, homophones, and/or inaudibility may be present. documented in this encounter [facility] 06-14-2023 Instructions Marlo Reeves MD - 06/14/2023 [...] doctor may have you work with a associate trainer, chiropractor or physical therapist to make [...] your doctor. Where can I learn more? [place] [employer] https://orthoinfo.org/en/recover y/dnzal-kslcflyaieju-ohwzyix/spi rw-hdjhxkmfpuxt-akzziwf-pdf Last Reviewed Date 2020-06-18 Consumer Information Use [...] or approved for treating a specific patient. [employer] and its affiliates disclaim any warranty or liability relating to this information or the use thereof. The use of this information is governed by the Terms of Use, available at https://www.Insignia Technologieser.com/en /know/bdrvxyos-uxcwjnbbhyfwk-uoj ms Copyright Copyright 2022 [employer] and its affiliates and/or licensors. All rights reserved. Patient Education Patient Education Low back pain in adults The Basics Written by the doctors and editors at [facility] How worried should I be about low [...] This is when someone who knows traditional [place] medicine inserts tiny needles into your body [...] process is complete. This topic retrieved from [employer] ([employer]) on: May 16, 2022. Topic 20770 Version 20.0 Release: 30.5.3 - C31.43 2022 [employer] and/or its affiliates. All rights reserved. figure 1: Anatomy of the back Low back pain can be caused by problems with the muscles, ligaments, discs, bones (vertebrae), or nerves. Often, back pain is caused by strains or sprains involving the muscles or ligaments. These problems cannot always be seen on imaging tests, such as MRI or CT scans. Graphic 77392 Version 5.0 Consumer Information Use and Disclaimer [...] or approved for treating a specific patient. [employer] and its affiliates disclaim any warranty or liability relating to this information or the use thereof.The use of this information is governed by the Terms of Use, available at https://www.wolterskluwer.com/en /know/ghtxadit-cminzujmdworx-xwb ms 2022 [employer] and its affiliates and/or licensors. All rights reserved. Copyright 2022 [employer]. and/or its affiliates. All rights reserved. documented in this encounter [facility] 05-18-2023 History of Presen t illness Narrative [...] masses or organomegaly Vulva: normal, Bartholin's, Urethra, [place]'s normal Vagina: Vaginal Cuff:no Bleeding: no Discharge: [...] concerns, pt agreeable. documented in this encounter [facility] 05-03-2023 Miscellaneous Notes PT called to confirm that physical therapy documents were received. Appears we have that from [facility] in her chart. Please advise if there is anything else needed from the patient at this time. Thank you! Paperwork was faxed previously to pre cert documented in this encounter [facility] 05-03-2023 Telephone encounter Note PT called to confirm that physical therapy documents were received. Appears we have that from [facility] in her chart. Please advise if there is anything else needed from the patient at this time. Thank you! [facility] 05-03-2023 Telephone encounter Note Paperwork was faxed previously to pre cert [facility] 05-01-2023 Miscellaneous Notes Phil with [facility] pre-cert. called Asking for physical therapy notes that can be sent over on this patient before their upcoming MRI appt on May 09. Please fax to [phone]. Please advise. Thank you! Can you do [...] our office Paperwork was faxed over from [facility]/asha and was faxed to pre cert as requested per verbal order documented in this encounter [facility] 05-01-2023 Telephone encounter Note Phil with [facility] pre-cert. called Asking for physical therapy notes that can be sent over on this patient before their upcoming MRI appt on May 09. Please fax to [phone]. Please advise. Thank you! [facility] 05-01-2023 Telephone encounter Note Can you do this? 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 [facility] [facility]* Attachments The following attachments cannot be sent through Care Everywhere. * Gynecological Exam (Kiswahili) documented in this encounterProMediKitchensurfing SystemInstructionsNot on file documented in this encounterProMediKitchensurfing SystemReason for referral (narrative)* Consultation (Routine) - Pending Review Specialty Diagnoses / Procedures Referred By Maranda t Referred To Contact Pain Medicine Diagnoses Spondylosis of lumbar region without myelopathy or radiculopathy Marlo Reeves MD [facility] [facility], [address] [address] Ludwin Alexander MD [address] COMPREHENSIVE SOLAR ENERGY SPECIAL[place] [address] Referral ID Status Reason Start Date Expiration Date V isits Requested Visits Authorized [id number] Pending Review 06/14/2023 06/13/2024 1 1 [facility] Summary Purpose Family History No Family History Records FoundNo Family History Records FoundNo Family History Records Found Advance Directives No Advanced Directives Records FoundDocuments on File Type Date Recorded Patient 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 Machine 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 Expl 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 Advance Directive 05/06/2019 11:34 AM ppgad 05/06/2019 Documents on File Type Date Recorded Patient Preforming Machine Operator Expl anation Advance Directive 05/06/2019 11:34 AM ppgad 05/06/2019 Additional Source Comments INFORMATION SOURCE (unrecogn ized section and content) DATE CREATED AUTHOR 06/15/2023 [facility] DATE CREATED AUTHOR AUTHOR'S ORGANIZ ATION 08/23/2023 [facility] DATE CREATED AUTHOR AUTHOR'S ORGANIZ ATION 08/11/2024 [facility] Care Teams (unrecognized sec tion and content) Diesel Mechanic Farm 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 Specialty Start Date End Date Loida Joyce MD [address] [place] [address], [address] [address] PCP - General 02/22/13 Diesel Mechanic Farm 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 Specialty Start Date End Date Loida Joyce MD [address] [place] [address] PCP - General 02/22/13 Diesel Mechanic Farm 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 Specialty Start Date End Date Loida Joyce MD [address] [place] [address], [address] [address] PCP - General 02/22/13 [employer]el Mechanic Farm 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 Specialty Start Date End Date Loida Joyce MD [address] [place] [address], [address] [address] PCP - General 02/22/13 [employer]el Mechanic Farm 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 Specialty Start Date End Date Gregoria Valente, PROPERTY DISPOSAL MANAGER-BEAD WIRE INSULATOR [address] [place] [address] PCP - General Family Medicine 10/27/23 Reason for Visit (unrecogniz ed section and content) Reason Comments Gynecologic Exam Reason Comments Pain Lumbar- pain stays i n back, minimal pain Specialty Diagnoses / Procedures Referred By Contac t Referred To Contact Orthopedic Surgery Diagnoses Severe back pain Loida Joyce MD [address] [facility] [place] [address] Marlo Reeves MD [facility] [facility], [address] [address] Referral ID Status Reason Start Date Expiration Date Visits Requested Visits Authorized [id number] Pending Review Specialty Services Required 05/12/2023 05/11/2024 [...] BE BASED ON THE PRIMARY CLINICAL RECORDS. [employer] [facility]. provides no warranty or guarantee of the accuracy or completeness of information in this document.
--- NOTE | 2024-08-28 10:36 | PM.CN ---
Consult Note: HPI Data of Consult Patient: known to practice within the last 3 years Requesting Physician: Melody Laboy NP Primary Care Provider: Non-Staff Physician, Consult Narrative Reason for consult: f/u Narrative: She is a 49-year-old female who reports having had at least a 10-year history of lower back pain. previously found benefit to therapeutic lumbar medial branch injections, recently underwent bilateral L4/5 L5/S1 facet RFA with mild relief. Pain today 2/10 increasing to 8/10 at times. notes worse pain in the mornings, stiffness. Pain increased with twisting, pushing, pulling, lifting, bending. denies numbness, tingling, weakness, cramping cc:: CC: Melody Laboy NP Review of Systems ROS Musculoskeletal Reports: back pain; Denies: joint pain PFSH [facility] Medical History (Updated 02/15/24 @ 15:59 by Melody Laboy NP) Low back pain ?M54.50 - Low back pain, unspecified (ICD-10) Surgical History H/O section ?Z98.891 - History of uterine scar from previous surgery (ICD-10) Meds Home Medications and Allergies Home Medications ?Medication ?Instructions ?Recorded ?Confirmed ?Type buspirone 5 mg tablet 5 mg PO BID PRN anxiety 01/16/24 07/29/24 History citalopram 40 mg tablet (Celexa) 40 mg PO DAILY 01/16/24 07/29/24 History phentermine 37.5 mg tablet 18.75 mg PO DAILY 01/16/24 07/29/24 History (Adipex-P) Allergies Allergy/AdvReac Type Severity Reaction Status Date / Time No Known Drug Allergies Allergy Verified 07/29/24 06:55 Exam Constitutional Documenting provider has reviewed patient's vital signs: yes Common normals: no apparent distress, oriented x3, healthy appearing, alert and well nourished General appearance: cooperative HENIL Common normals: normocephalic, hearing grossly normal bilaterally and moist oral mucous membranes Head and scalp: normocephalic Eye Common normals: PERRL Pupil: PERRL Neck & C-Spine Common normals: full ROM General: normal visual inspection Chest Common normals: inspection of chest normal Respiratory Common normals: normal respiratory effort, no retractions and no use of accessory muscles Back & Pelvis Lumbar spine/lower back: lumbar spinal tenderness Lumbar spinal tenderness location: L2 and L3; ROM not limited and no pain with ROM Sacroiliac joints: SI joint(s) abnormal Other: bilateral sij negative alf(patricks), gaenslens, thigh thrust, compression test Extremity Common normals: normal to inspection and full ROM Neuro Common normals: oriented x3, CN's II-XII intact bilaterally, moves all extremities, no focal motor deficits, no sensory deficits noted and deep tendon reflexes 2+ bilaterally Sensorium/orientation: alert Motor exam: strength 5/5 throughout and no movement abnormalities noted Psych Common normals: mental status grossly normal, thought process normal, cooperative, affect normal, speech normal and activity/motor behavior normal Speech: normal speech Thought process: normal thought process Results Additional Findings Additional findings: If on a controlled substance or opioids, I have checked an [place] report on this patient and there are no aberrancies noted in the prescribing history.??If on a controlled substance or opioid a drug screen was completed and reviewed within the last year, and if there has not been a drug screen completed we ordered one today to monitor higher risk, state monitored pain medication use. As part of providing excellent, safe, comprehensive care, the following was completed at our patient's visit: 1. A medication reconciliation and review to ensure accurate knowledge of current/active medications, including asking our patients to inform us about any [id number] medications or herbal remedies/nutritional supplements/alternative remedies. 2. A review to specifically ensure our patients have had annual screening for screening for depression, screening for tobacco use, and screening for unhealthy alcohol use. For concerning screenings had a discussion with the patient, provided patient education, and recommended follow-up with primary care provider when appropriate. If patient noted with a risk of falling, they received education on strength, gait, and balance training to prevent future risk of falling. Assessment and Plan Assessment and Plan (1) Lumbar spondylosis: (2) Myalgia: Plan as noted on exam, improved L4-S1 facet pain. could consider adjusted level MBBs/RFAs in the future. no evidence of NC or lumbar radiculopathy. SIJ normal. encouraged nsaids and tylenol. could consider mobic 7.5mg BID PRN in the future if needed. f/u 6 months, sooner if needed
== END 2024-08-28 10:00 | disposition home or self-care (01) ==
LOC: PM 10:00
PROVIDERS: Visit Provider Nurse Practitioner
DX: M47.816 Spondylosis without myelopathy or radiculopathy, lumbar region (principal); M79.18 Myalgia, other site
CPT/HCPCS: G0463

== ENCOUNTER 2025-02-26 09:55 | Outpatient (OUT) | payer OTHER, SELFPAY ==
--- OUTSIDE RECORDS SUMMARY | 2025-02-26 09:58 | XMS_ITS | CCD ---
Author Organization [facility] Care Team Providers Care Therapist'S Assistant Name Role Phone MARLO REEVES Attending Unavailable LOIDA JOYCE Referring Unavailable LOIDA JOYCE Primary Care Unavailable Saundra VERA, Loida Primary Care Provider Karina Mathews Primary Care Provider [phone] Reyes VERA, Amada Dubon Attending Unavailable Jarod Henson MDneth Primary Care Provider Unavail able KENNY PORTER Referring Unavailable KARINA VALENTE L Primary Care Unavailable GURDEEP VALENTECI L Referring Unavailable GURDEEP VALENTECI L Primary Care Unavailable CHARLOTTE KENNY S Attending Unavailable NATIVIDAD MARTIN Primary Care Unavailable MARTIN HENSON Referring Unavailable NATIVIDAD GALATA Primary Care Unavailable Medications Current Medications MedicationDrug Class(es)DatesSig (Normalized)Sig (Original)[id number] 0.3 ml EPINEPHrine 1 mg/ml auto-injector (7 sources)alpha-Adrenergic Agonist, beta-Adrenergic Agonist, Catecholamine Start: 53-36-1296LUYPMJTpqwj (EPIPEN) 0.3 mg/0.3 mL auto-injector Inject 0.3 mL (0.3 mg total) into the appropriate muscle as needed (for sevre allergy). 2 each 11/30/2022 ActiveLactobac no.41/Bifidobact no.7 (PROBIOTIC-10 ORAL) (7 sources)Lactobac no.41/Bifidobact no.7 (PROBIOTIC-10 ORAL) Take by mouth. ActiveLactobac no.41/Bifidobact no.7 (PROBIOTIC-10 ORAL) Take by mouth. 0 Active MULTIVIT-MINERALS/FERROUS FUM (MULTI VITAMIN ORAL) (7 sources)MULTIVIT-MINERALS/FERROUS FUM (MULTI VITAMIN ORAL) Take by mouth. ActiveMULTIVIT-MINERALS/FERROUS FUM (MULTI VITAMIN ORAL) Take by mouth. 0 Active omega 9-kfz-dgv-fish oil (Fish OiL) 300-1,000 mg capsule (7 sources)omega 9-wqc-xax-fish oil (Fish OiL) 300-1,000 mg capsule Take by mouth. Activeomega 8-nkr-tcf-fish oil (Fish OiL) 300-1,000 mg capsule Take by mouth. 0 Active Completed/Discontinued Medications MedicationDrug Class(es)DatesSig (Normalized)Sig (Original)busPIRone hydrochloride 5 mg oral tablet (7 sources)Start: 05-31-2021 End: 40-99-9975kfzx 1 tablet by mouth three times dailybusPIRone (BUSPAR) 5 mg tablet Take 1 tablet (5 mg total) by mouth 3 (three) times a day. 30 tablet 05/31/2021 10/31/2024 Discontinued (Therapy completed)citalopram 40 mg oral tablet (8 sources)Serotonin Reuptake InhibitorStart: 07-06-2022 End: 42-03-6762gggn 1 tablet by mouth once daily in the morningcitalopram (CeleXA) 40 mg tablet take 1 tablet by mouth every morning 90 tablet 3 07/09/2023 10/31/2024 Discontinued (Therapy completed) Problems Active Problems Problem ClassificationProblemDateDocumented DateEpisodic/ChronicCoagulation and hemorrhagic disorders (7 sources)Thrombocytopenic disorder; Translations: [Thrombocytopenia, unspecified]Onset: 382916-74-5914UladqdqBphvbeqkfo disorders (2 sources)Menopause finding; Translations: [Menopausal and female climacteric states]Onset: 840110-24-1577LpneebkRjefh connective tissue disease (1 source)Metatarsalgia, unspecified foot; Translations: [Metatarsalgia, unspecified foot]Onset: 92-58-8871BdixqwscGvmmknlx codes; unclassified (1 source)PainOnset: 87-95-5841WlggtsapXllenebrpvg; intervertebral disc disorders; other back problems (2 sources)Spondylosis without myelopathy or radiculopathy, lumbar region; Translations: [Lumbar spondylosis]Onset: 316516-04-3113TlxrqrmPjsplhedyvj; intervertebral disc disorders; other back problems (2 sources)Dorsalgia, unspecified; Translations: [Backache]Onset: 06-14-2023 81-79-8491JtqaxkxvGujenqvecltc (1 source)Gynecologic ExamOnset: 10-31-2024 Past or Other Problems Problem ClassificationProblemDateDocumented DateEpisodic/ChronicMood disorders (7 sources)Mood disordersOnset: 02-22-2023 Resolved: Other nervous system disorders (7 sources)Other symptoms and signs involving cognitive functions and awareness; Translations: [Other signs and symptoms involving cognition]Onset: 12-27-2015 58-60-5504XxszmhekQwrsc screening for suspected conditions (not mental disorders or infectious disease) (4 sources)Patient encounter status; Translations: [Encounter for screening mammogram for malignant neoplasm of breast]Onset: 458061-00-1784Mcrbmegz Other skin disorders (7 sources)Epidermoid cyst; Translations: [Epidermal cyst]Onset: 07-19-2017 04-29-1040SmuzzrzpNakpgdgv codes; unclassified (7 sources)Mild memory disturbance ; Translations: [Other amnesia]Onset: 101354-88-6092Nltxxkuy Results Test NameValueInterpretationReference RangeFacilityXR FOOT RT MIN 3 VWSon 44-74-2121HV FOOT RT MIN 3 VWSXR FOOT RT MIN 3 VWS EXAM: XR FOOT RT MIN 3 VWS CLINICAL INFORMATION: Metatarsalgia, unspecified laterality. COMPARISON: 10/28/2024 FINDINGS: There is no evidence for an acute displaced fracture or malalignment of the foot. There is moderatefirst MTP joint DJD. IMPRESSION: 1. No evidence for an acute displaced fracture or malalignment of the foot. 2. Stable moderate first MTP joint DJD. Finalized by Jose Martin Davis MD on 01/05/2025 6:06 AMNormalProMedica Kettering Health Greene MemorialXR FOOT RT MIN 3 VWSon 13-64-5583NS FOOT RT MIN 3 VWSXR FOOT RT MIN 3 VWS EXAM: XR FOOT RT MIN 3 VWS CLINICAL INFORMATION: Metatarsalgia, unspecified laterality. COMPARISON: None. FINDINGS: There is no evidence for an acute displaced fracture or malalignment of the foot. There is localized moderate first MTP joint DJD. IMPRESSION: 1. No evidence for an acute displaced fracture or malalignment of the foot. By 2. Moderate first MTP joint DJD. Finalized by Jose Martin Davis MD on 10/28/2024 3:56 [facility] MAMM SCREENING BILATERAL W CADon 37-49-4794TRGN SCREENING BILATERAL W CADMAMM SCREENING BILATERAL W CAD ASHLEY SMITH 1975 [id number] EXAM: MAMM SCREENING BILATERAL W CAD, 09/18/2024 9:46 AM CLINICAL INDICATIONS: Screening, Screening mammogram for breast cancer COMPARISON: 08/21/2023, 08/16/2022 TECHNIQUE: Bilateral digital tomosynthesis MLO and CC views of the breasts were obtained, with creation of synthetic 2D views. Computer aided detection was utilized. FINDINGS: There are scattered areas of fibroglandular density. There are no suspicious masses, calcifications, or areas of architectural distortion. IMPRESSION: No mammographic evidence of malignancy. BI-RADS: BI-RADS 1 - Negative RECOMMENDATION: Routine screening mammogram in 1 year. RISK ASSESSMENT: TC Lifetime risk: 11%. The patient's reported personal and family medical history was used calculate their Tyrer-Cuzick lifetime risk of malignancy. Scores less than 20% are not considered high risk per ACR guidelines and patient should continue with the above recommendation. Finalized by Flora Burrell MD on 09/21/2024 8:36 AM 1 b MAMM 1 [facility] Vital Signs Date TimeVital SignValuePerforming DtgxagrnhNdfgttlf69-78-7522 10:460400Body iiwwtw468.2 cmSara Nellie DO Work Phone: [facility]07-31-2025 10:460406Body mass index (BMI) [Ratio]25.37 kg/q0Icbte Nellie DO Work Phone: [facility]07-31-2025 10:460400Body paafqx24.48 kgSaVirtua Mt. Holly (Mem[facility])t DO Work Phone: [facility]07-31-2025 10:46-0400Diastolic blood iwtjpvwu51 mm[Hg]Kenny Mayerkett DO Work Phone: [facility] [employer] Vbpsxs39-32-5510 10:46-0400Systolic blood kcsautxj36 mm[Hg]Kenny Mayerkett DO Work Phone: [facility] [employer] Sbmchc77-83-4560 07:40-0400Body dgwdyj794.5 Irwin Reeves MD Work Phone: [facility] [employer] Zfelza00-54-3172 07:40-0400Body mass index (BMI) [Ratio]24.69 kg/d8HwkjhMarlo Reeves MD Work Phone: [facility] [employer] Gptoln49-85-5090 07:40-0400Body pybusv49.58 kgMarlo Reeves MD Work Phone: [facility] [employer] Uxnobt82-44-9528 10:31-0500Body .5 Mc Mayerkett DO Work Phone: [facility] [employer] Lsgvok51-07-0000 10:31-0500Body mass index (BMI) [Ratio]24.72 kg/r1Hozoc Charlotte DO Work Phone: [facility] [employer] Cgkazf04-97-1219 10:31-0500Body iintbm50.67 kgSabrenda Mayerkett DO Work Phone: [facility] [employer] Jisiam38-56-9307 10:31-0500Diastolic blood druvfzyg06 mm[Hg]Kenny Mayerkett DO Work Phone: [facility] [employer] Deqbjh99-16-3079 10:31-0500Systolic blood mm[Hg]Kenny Mayerkett DO Work Phone: [facility] Encounters Encounter DateEncounter TypeCare ProviderFacilityStart: 01-03-2025 End: 63-31-2283gqrgzzvmtoNUTPRVCMercy Health St. [facility] Board[facility] Hospitaltart: 10-31-2024 End: 92-75-6649Jwqaplk encounter procedureSannmarie Porter DO Work Phone: [facility] HospitalSp[facility] [employer] [facility] SystemStart: 10-31-2024 End: 18-55-3362Tdcegrf encounter statusSabrenda Porter DO Work Phone: [facility] SystemStart: 10-31-2024 End: 69-78-6074Fgbnvnys preventive med est patient 40-64yrSonny Porter DO Work Phone: [facility] Obstetrics/GynecologyComment on above:Encounter for annual routine gynecological examination (Primary Dx); Encounter for screening mammogram for malignant neoplasm of breast; Perimenopausal symptoms; Healthcare maintenanceStart: 10-31-2024 End: 29-02-6454oyzfyyuwjmNTPFQ S PUCKETTProMedOhioHealth Doctors Hospital HospitalStart: 08-64-2907Upmowyjqo for general adult medical examination without abnormal findingsKENNY GUTProMedica [facility] City HospitalStart: 48-99-3706Qylbviolz for gynecological examination (general) (routine) without abnormal findingsKENNY DRAKEroMedica [facility] City HospitalStart: 10-28-2024 End: 48-29-0958emsusxnpyiARTHI L [facility] HospitalStart: 09-18-2024 ambulatorySABRENDA [facility] HospitalStart: 08-05-2024 End: 09-63-7612Tykfaopaq Herbie Porter DO Work Phone: [facility] Obstetrics/GynecologyStart: 07-29-2024 End: 08-75-1285norylbekrvEmjripkRoberto Chambers MDFacility:PM Bassam Start: 95-40-1185YaviisAsgkxcs Guntsch MD Work Phone: [facility] HospitaledoStart: 06-14-2023 End: 39-37-2209xuelayviqxBVOFZBox [facility] Ambulatory PPGStart: 06-14-2023 End: 75-38-3846Nbmfre outpatient new 30 minutesMalro Reeves MD Work Phone: [facility] Spine SurgeonsComment on above:Spondylosis of lumbar region without myelopathy or radiculopathy (Primary Dx); Severe back painStart: 05-18-2023 End: 00-74-6167Lhobnkr encounter statusSabrenda Gut DO Work Phone: [facility] HospitaloDesk SystemStart: 05-18-2023 End: 84-17-9311Tdgzbpsl preventive med est patient 40-64yrsSaraporsche Gut DO Work Phone: [facility] Obstetrics/GynecologyComment on above:Encounter for gynecological examination without abnormal finding (Primary Dx); Encounter for screening mammogram for malignant neoplasm of breastStart: 07-71-1706Yvmfydabm encounterErika [facility] Hospitalart: 68-56-1369Gnyhmptvs encounterErika Hogan [facility] Practice [facility] Hospitalart: 12-27-2015 End: 09-23-1516Fkxikyk encounter statusErika AyalaMartin Memorial HospitalCarZumer System Work Phone: Procedures DateProcedureProcedure DetailPerforming ClinicianStart: 33-45-4606Sguif depression screening assessmentScity emergency hospital Charlotte DO Work Phone: Start: 34-56-3702VxqdfpaggnvJnhhe Nellie DO Work Phone: Start: 96-96-8458RajzcatslzfPtsoe Charlotte DO Work Phone: Start: 69-45-0657Bgeka depression screening assessment Erika AyalaStart: 81-77-2861BimhsbeirzgLsaaecgm NapolskiStart: 03-31-2022 Microscopic observation [Identifier] in Cervix by Cyto stainErika Ayala Plan of Treatment DateCare ActivityDetailAuthorStart: 85-97-1958Dmdzlibsf for malignant neoplasm of breastMaVernon Memorial Hospital [employer] [facility] Hospitaltart: 02-24-2026 End: 25-08-9835Pojzcra encounter kzelnzfof18/24/2026 3:15 PM EST Office Visit [facility] [address] [place] [address] [address] [place] [address] Kenny Porter, [address], [address] [place] [address] [facility] Obstetrics/GynecologyStart: 67-65-0230Ypdhk BMI ScreeningAdult BMI Screening [facility]MChip[facility] SystemStart: 75-05-6494Womewqzpgh ScreeningDepression Screening ProMChippewa [facility] SystemStart: 95-02-4321Nmcjazy ScreeningTobacco Screening [facility] SystemStart: 07-76-2177Xggkzlfpp for malignant neoplasm of breastMammogramUniversity Hospitals [facility] SystemStart: 72-87-5814Eyheumffo for malignant neoplasm of cervixPap SmearProMercy Health St. [facility] SystemStart: 12-05-2024 End: 00-28-3742Dtanjax encounter mrimcwouy73/04/2025 3:15 PM EDT Office Visit [facility] [address] [facility] [address] [place] [address] Kenny Porter, [address], [address] [place], [place] [facility] Obstetrics/GynecologyStart: 34-85-4909Letjknymv vaccinationInfluenza Vaccine [facility] SystemStart: 96-89-5026UQtQ,Tdap and Td Vaccines (2 - Td or Tdap)DTaP,Tdap and Td Vaccines (2 - Td or Tdap)[facility] SystemStart: 10-31-2024 End: 31-01-8036CEZ Breast - bilateral screeningMammography screening bilateral with CAD Imaging Routine Encounter for screening mammogram for malignant neoplasm of breast Expected: 10/31/2024, Expires: 10/31/2025[facility] Work Phone: Comment on above:Expected: 10/31/2024, Expires: 10/31/2025Start: 10-31-2024 End: 37-38-2970Buitpbp encounter ajenthbvu71/31/2025 10:45 AM EDT Office Visit [facility] [address] [place] [address] Kenny Porter Dillon, DO [address] [place] [address] [facility] Obstetrics/GynecologyStart: 09-19-2024 End: 66-27-3779Ilignkl encounter sdsslhjmi57/19/2025 10:00 AM EDT [facility] [address] [place] [address] Kenny Porter Dillon, DO [address] [place] [address] [address], [address] [place] [address] [facility] Obstetrics/GynecologyStart: 09-18-2024 End: 07-66-6078Ocersto encounter phdshzijr68/18/2025 10:00 AM EDT Appointment [facility] [address] [place] [address] [phone] [place] - MammographyStart: 96-86-3774Lpanlxwbu for malignant neoplasm of breastMammogramUniversity Hospitals [facility] SystemStart: 08-22-2024 End: 24-45-5758Egvwqvz encounter fygjpwliw75/22/2025 11:00 AM EDT Office Visit [facility] [address] [place] [address] Kenny Porter Dillon, [address] [place] [address] [address], [address] [facility] [place] [address] [facility] Obstetrics/GynecologyStart: 31-75-9792Bnzrh BMI ScreeningAdult BMI Screening [facility] SystemStart: 08-05-2024 End: 86-70-9558BYC Breast - bilateral screeningMammography screening bilateral with CAD Imaging Routine Screening mammogram for breast cancer Expected: 08/05/2024, Expires: 08/05/2025[facility] Work Phone: Comment on above:Expected: 08/05/2024, Expires: 08/05/2025Start: 52-50-9376Rtvjd BMI ScreeningAdult BMI ScreeningCleveland Clinic [facility] SystemStart: 93-78-9012Dzoidzg ScreeningTobacco ScreeningUniversity Hospitals [facility] SystemStart: 28-08-8732Lcjcp BMI ScreeningAdult BMI ScreeningUniversity Hospitals [facility] SystemStart: 40-96-0389Fmgibol ScreeningTobacco ScreeningUniversity Hospitals [facility] System Start: 60-87-7249Mioeu BMI ScreeningAdult BMI ScreeningUniversity Hospitals [facility] System Start: 84-96-9251Zfjoepddks ScreeningDepression ScreeningUniversity Hospitals [facility] System Start: 19-51-4865Uikukka ScreeningTobacco ScreeningUniversity Hospitals [facility] SystemStart: 73-45-6433VOVKD-19 Vaccine ( season)COVID-19 Vaccine ( season)[facility] SystemStart: 85-57-1531Pifpytqcr vaccinationInfluenza VaccineUniversity Hospitals [facility] SystemStart: 08-21-2023 End: 94-01-4836Ehsrvgs encounter sxldzhzeu00/20/2024 3:30 PM EDT Appointment [facility] [address] [place] [address] [phone] [place] - MammographyStart: 06-14-2023 End: 61-29-1730Cneiduv encounter vctbbjcca56/13/2024 7:40 AM EDT Office Visit [facility] [address] [facility] [address] [place] [address] Marlo Reeves MD [address] [facility], [address] [address] [facility] SurgeonsStart: 05-18-2023 End: 03-96-2488PEQ Breast - bilateral screeningMammography screening bilateral with CAD Imaging Routine Encounter for screening mammogram for malignant neoplasm of breast Expected: 05/18/2023, Expires: 05/18/2024[facility] Work Phone: Comment on above:Expected: 05/18/2023, Expires: 05/18/2024Start: 05-18-2023 End: 58-73-0597Mgiswuv encounter nemdushiy96/15/2024 10:30 AM EST Office Visit [facility] [address] [place] [address] Kenny Porter, [address], [address] [place] [address] [facility] Obstetrics/GynecologyStart: 05-09-2023 End: 19-94-3103Cuzxwlm encounter npouhlzbg50/06/2024 9:[address] [facility] [address] [place] [address] [phone] Monroe Regional HospitalStart: 67-25-1682SQGPP-19 Vaccine ( season)COVID-19 Vaccine ( season)[facility] Hospitaltart: 95-08-0667Metghsgcj vaccinationInfluenza VaccineUniversity Hospitals [facility] Center SystemStart: 81-85-3064Kdior BMI Follow Up PlanAdult BMI Follow Up PlanUniversity Hospitals [facility] Medical Center System End: 87-42-0043DVV panel - Blood by Automated countCBC without diff Lab Routine Healthcare maintenance 1 Occurrences starting 10/31/2024 until 11/01/2025 [facility]Comment on above:1 Occurrences starting 10/31/2024 until 11/01/2025 End: 12-07-3873Bgxjqcoddpkzw metabolic 2000 panel - Serum or PlasmaComprehensive metabolic panel Lab Routine Healthcare maintenance 1 Occurrences starting 10/31/2024 until 11/01/2025[facility] FoundationComment on above:1 Occurrences starting 10/31/2024 until 11/01/2025 End: 35-31-8344Ynretchvmk A1c/Hemoglobin.total in BloodHemoglobin A1c Lab Routine Healthcare maintenance 1 Occurrences starting 10/31/2024 until 11/01/2025[facility] FoundationComment on above:1 Occurrences starting 10/31/2024 until 11/01/2025 End: 40-32-7631Pgbct 1996 panel - Serum or PlasmaLipid profile Lab Routine Healthcare maintenance 1 Occurrences starting 10/31/2024 until 10/31/2025 [facility] FoundationComment on above:1 Occurrences starting 10/31/2024 until 10/31/2025 End: 40-61-4738LEE with ReflexTSH with Reflex Lab Routine Healthcare maintenance 1 Occurrences starting 10/31/2024 until 10/31/2025[facility] Comment on above:1 Occurrences starting 10/31/2024 until 10/31/2025 End: 35-42-9210Banekwh D 25 hydroxyVitamin D 25 hydroxy Lab Routine Healthcare maintenance 1 Occurrences starting 10/31/2024 until 10/31/2025[facility] FoundationComment on above:1 Occurrences starting 10/31/2024 until 10/31/2025 Immunizations Immunization DateImmunizationNotesCare BixvowcnKrywrdks85-88-4379fwngudcag virus vaccine, unspecified formulationAultman Alliance Community Hospital 11-69-3573ziggzmaom virus vaccine, unspecified formulationOlmsted Medical Center08-27-2015tetanus toxoid, reduced diphtheria toxoid, and acellular pertussis vaccine, adsorbedJeKettering Memorial Hospital Payers DatePayer CategoryPayerPolicy [id number] Care Other (unspecified) [place] [id number] [id number] [id number]ryfxn [id number] [id number] [id number] 2.16.840.1.159790.3.57[id number] 2.16.840.1.060302.3.579.2.1286 Social History DateTypeDetailFacilityStart: 75-96-3564Cmrfjna smoking status NHISNever smoked tobaccoProMercy Health St. [facility] SystemStart: 40-23-6183Ugjlvrw use and exposureSmokeless tobacco non-userUniversity Hospitals [facility] Medical Center SystemStart: 02-22-2023 End: 26-48-6935Rhgwuaq intakeCurrent drinker of alcohol (finding)[facility] SystemStart: 02-13-2020 End: 54-12-8994Ycaphrc of Social functionProMercy Health St. [facility] SystemStart: 02-13-2020 End: 11-53-8438Flaczpx Use Disorder Identification Test - Consumption [AUDIT-C] ProMencompass health rehabilitation hospital [facility] Health SystemHow often to you have a drink containing alcohol?2-4 times a monthProLamar Regional Hospital Health SystemHow many standard drinks containing alcohol do you have on a typical day?1 or 2ProMedmonroe county hospital Health SystemHow often do you have 6 or more drinks on 1 occasion?Less than monthlyC[facility] Foundation Adolescent depression screening sgvmhqipfu0SlsRlqjfdSt. Luke's Hospitaltart: 95-23-0215Txz Assigned At BirthFeGranville Medical Centertart: 03-20-2021 Gender identityIdentifies as female gender (finding)[facility] Start: 09-32-0999Eolhgn orientationHeterosexual (finding)[facility] Start: 86-43-0988EzaPnmcvy (finding)[facility] FoundationNEGATED: Highlighted rowStart: NINFHistory of tobacco usePassive smokerCleveland Clinic Foundation Clinical Notes 05-01-2023 to 10-31-2024 Note Date & GfwlItbfMkhrcbnx44-59-8274 History of Present illness Narrative* Kenny Carranza [place], DO - 10/31/2024 10:45 AM EDT Subjective Ashley Smith is a 49 y.o. female who presents for an annual gynecologic exam. The patient would like to discuss irregular menses, has had one 18 days late, last one super heavy, just seemto be changing, along with other symptoms. Pt is doing well otherwise, no life changes, no other concerns today Periods are irregular, lasting 7 days. Dysmenorrhea:moderate, occurring premenstrually and first 1-2 days of flow. Cyclic symptoms include bloating, irritability, and moodiness. No intermenstrual bleeding, spotting, or discharge. For patients 35-55 yo not in menopause: Patient reports the following estevan/menopause symptoms: anxiety, depression, irritability, mood changes, hot flashes, brain fog, insomnia/trouble falling or staying asleep, fatigue, weight gain/body composition changes, low libido, vaginal dryness/itching, and urinary frequency Current contraception: vasectomy History of abnormal Pap smear: no Last pap: March 31, 2022 Family history of uterine or ovarian cancer: no Regular self breast exam: yes Last mammogram: September 18, 2024 Last colonoscopy: 04/10/2022 Cologuard Family history of breast cancer: no Family history of colon cancer: no Depression screening PHQ-9: 0 Menstrual History: OB History 2 Para 2 Term 2 AB Living 2 SAB IAB Ectopic Multiple Live Births 2 Menarche age: 13 Patient's last menstrual period was 10/24/2024 (exact date). Period Duration (Days): 7 Period Pattern: (!) Irregular Menstrual Flow: Heavy, Moderate Menstrual Control: Tampon, Panty liner Menstrual Control Change Freq (Hours): Every 2-3 hours, lasting 3-4 days Dysmenorrhea: (!) Moderate Dysmenorrhea Symptoms: Cramping The following portions of the patient's history were reviewed and updated as appropriate: allergies, current medications, past family history, past medical history, past social history, past surgicalhistory and problem list. Review of Systems Pertinent items are noted in HPI, otherwise negative. Objective Vitals: 10/31/24 1046 BP: 90/62 BP Site: Left Arm BP Postition: Sitting BP CUFF SIZE: M (9-13 inches) Weight: 73.5 kg (162 lb) Height: 170.2 cm (5' 7.01 ) General: alert, appears stated age and cooperative Heart: regular rate and rhythm Lungs: clear to auscultation bilaterally Breast: normal without suspicious masses, skin or nipple changes or axillary nodes Abdomen: soft, non-tender, without masses or organomegaly Vulva: normal, Bartholin's, Urethra, [place]'s normal Vagina: Vaginal Cuff:no Bleeding: yes - at end of cycle Discharge: no Cervix: no cervical motion tenderness [...] all orders for this visit: Encounter for annual routine gynecological examination Encounter for screening mammogram for malignant neoplasm of breast - Mammography screening bilateral with CAD; Future Perimenopausal symptoms Disc briefly perimenopause/menopause and treatment options. Green scale and resources given. Advised can RTC to further discuss and order and/or review labs prn. Pt agreeable and consult scheduled. Healthcare maintenance - CBC without diff; Future - Comprehensive metabolic panel; Future - TSH with Reflex; Future - Vitamin D 25 hydroxy; Future - Lipid profile; Future - Hemoglobin A1c; Future Breast self exam technique reviewed and [...] or concerns, pt agreeable. documented in this encounterNortheastern Vermont Regional HospitaloDesk [id number] Instructions* Patient Instructions* Kenny Porter DO - 10/31/2024 10:45 AM EDT Please see below: If you desire a estevan/menopause consult, complete the Moreno Scale (to be given and/or filled out the day of your consult; fill out FIRST column only) AND complete below health maintenance labs if youhave not had any recent values in the last 6 mos: fasting lipid profile CBC CMP hemoglobin A1C/HA1C or fasting glucose Vitamin D TSH/thyroid stimulating hormone Listen to the podcast link below https://www.[employer]GR[employer]/podcasts/episode-157 https://podcasts.Royal[employer]/us/podcast/ptl-jntzod-eg-tnj-shidytxes-qfleh-with-lis a-mosconi/[email or web address]?t=[id number] https://haku.[employer]/vfeklom-hnfjcq-nd-pissed Watch The M Factor documentary on PBS https://www.pbs.org/video/dtu-k-jnzkbf-djkycskno-izg-tzkqupj-rq-bxeaiglye-lvnat5 / Please see below links for info from The Menopause Society: https://www.menopause.org/docs/default-source/professional/rgfbwbqt-icuyblzk-fvk ut-ht-2021.pdf https://menopause.org/wp-content/uploads/for-women/Fxezanksnwgtlg-Rioehwdupid-Gl rmone-Therapy.pdf https://menopause.org/wp-content/uploads/xbbxgji-arqnocyp-kikevwc/menonote-menop olkc-hbh-orushdwuyx.pdf https://menopause.org/wp-content/uploads/iwbecjp-tfbkefxy-vqxantx/nonhormone-joe rzeexq-zfwnrawh_f8tzt57s-240s-9k6y-3w22-f7c026y8xt18.pdf https://menopause.org/wp-content/uploads/for-women/MenoNote-GSM.pdf https://menopause.org/wp-content/uploads/oygodte-xqbensdv-otfpjvm/lxzucjep-yf-nx ytoaljnede-xlqofuv-wryeynt-2919_0b01l461-51v3-3l0w21o9-9b8b-9x50-87s988u5d115.pdf Other contemporary menopause resources: https://www.foodpanda / hellofood/contents/xibayafpqd-ngelcfb-oyqgcqh-cgnzot-wrf-czpsws https://www.mayoclinic.org/diseases-conditions/menopause/in-depth/hormone-therap y/art-44915717 https://www.ahajournals.org/doi/10.1161/CIR.2803161750040061 https://estrogenmatters.com/ https://www.lisamZaplox.[employer]/mhz-dsycpmqcc-ioriz https://www.AppGyverharonmalI AND C-Cruise.Co,Ltd..[employer] https://Lightscape MaterialsgirMaxPrepsidetosurvivingmenopause.[employer] https://SurvatacaspCCS Environmental.[employer] https://Haoqiao.cn.[employer] The Musculoskeletal Syndrome of Menopause by Dr. Danita Bynum: see link below https://www.[employer]/doi/full/10.1080/62702892.2024.3331236#abstract A Contemporary View of Menopausal Hormone Therapy by Dr. Jody Cohen: see link below https://pubmed.ncbi.nlm.nih.gov/26353887/ About the [place] Study: During the past 30 years, most women in the [place] have been recommended to have a mammogramevery year. We know that mammograms are vital for breast cancer detection, but we still don t know how often we need them. Over those same 30 years we have learned so much about the biology of the breast. We now know that women have different levels of risk for breast cancer, and that it is not simply one disease. Despite these advances, breast cancer remains the second leading cause of cancer for women in the [place]. If we can learn more about who gets breast cancer, why they get it, and what type they get, we canreduce women s risk of getting it. That s why I founded the WISDOM Study - Women Informed to ScreenDepending On Measures of risk. The groundbreaking WISDOM Study is testing a personalized approach to screening compared to annual mammograms. Please join us and make medical history. Use the WISDOM of your body to help yourself, us, and generations of women to come. https://www.thewisdomstudy.org WEIGHT GAIN/BODY CHANGES As we get older, women may notice that staying at their usual weight becomes harder. It's common for weight gain to start a few years before menopause, during the time known as perimenopause which commonly starts at ages 40-44. For some it can start in their 30's. Both men and women produce fewer hormones once they hit 30. Estrogen - the hormone that controls a woman's monthly cycle - begins to drop around then and further decreases at 35. Weight gain often continues during this time at about the rate of 1.5 pounds each year as a woman goes through her 50s. In addition, hormonal changes of menopause tend to make it more likely that women will gain weight around the abdomen, rather than the h ips and thighs. But hormonal changes are not the only cause of weight gain. This is often related to unavoidable changes of aging, as well as lifestyle and genetic factors. For example, muscle mass typically goes down with age, while fat increases. Losing muscle mass slows the rate at which the body uses calories. That rate is called metabolism. This process can make itmore difficult to stay at a healthy weight. If you continue to eat as you always have and don't do more physical activity, you're likely to gain weight. Most people become less active as they age. Paying attention to your activity and trying to move more may help keep you at a healthy weight. Genetic factors also might play a role in weight gain around menopause. If your parents or other close relatives carry extra weight around the abdomen, you probably will too. Other factors, such as eating a diet that isn't healthy, increased stress and not getting enough sleep, might contribute to weight gain. Stress increases our Cortisol level which can negatively effect our metabolism. When people don't get enough sleep, they tend to snack more and eat and drink morecalories. Hormones can be in normal ranges during our cycle as we age and even during the menopause transition until we stop having periods for 1 yr or more--despite the mental health and physical changes thatare happening, therefore female hormone testing is usually not useful. Thyroid problems can cause weight changes but there are usually other signs of thyroid disease like cycle changes, mood changes/extreme fatigue, temperature changes and sleep issues. We advise: Increase your activity if you don't exercise and/or change your exercise to include more strength/resistance and weight training. This will help build muscle and increase your metabolism Consider joining a gym, getting a personal carer or try a new activity/exercise, wearing a weighted vest (if safe for you) when walking or at work if you are able and/or while doing common senior electronics engineer like cleaning, vacuuming, laundry, etc. Set a goal of at least 150 minutes of moderate to intense activity per week including strength/resistance and weight training at least 3 to 4 times/week Adequate intake of below nutrients/vitamins/minerals, ideally from whole food sources: Fiber 30-40+ gm/daily Calcium 1200mg/divided daily with Vit D 800 IU/divided daily or Vit D3 2000 IU/daily [place] 3 fatty acids at least 500 mg combination of DHA and EHA Protein-1.2-1.6 gm/kg of ideal body weight daily or aim for 100 gm/daily Probiotic (kefir, yogurt, kombucha, fermented foods like sauerkraut, kimchi, etc) Anti-inflammatory/anti-oxidant/flavenoids foods/supplements such as Turmeric, dark leafy greens (kale, crystal greens, moldovan chard, lettuce), fruits (berries, peaches, tomatoes), scallions/onions, broccoli, cabbage Healthy carbohydrates Adjusting macro-nutrients and consider a Mediterranean diet https://www.medicalnewstoday.com/articles/yofgabuocvfea-jbzg-mft-inflammation Avoid alcohol, caffeine and excessive sweets/added sugars (should limit added sugars to <20mg daily) Ensure you sleep 8 hrs per night Reduce your stress Consider weight loss support groups/program (Weight Watchers, Profiles by Kenna) or apps (Pied Piper, [employer]) You can also call and make a self-referral to [facility] at [phone] documented in this encounterCleveland Clinic Foundation05-05-2025 Miscellaneous Notes* Telephone Encounter - Christina Jung - 08/05/2024 10:51 AM EDT Central scheduling needs a mammogram screening order placed. * Telephone Encounter - Zeina Bloom CMA - 08/05/2024 10:51 AM EDT Mammogram order placed Zeina documented in this encounterCleveland Clinic Foundation05-05-2025 Telephone encounter Note* Telephone Encounter - Christina Jung - 08/05/2024 10:51 AM EDT Central scheduling needs a mammogram screening order placed. [facility]05-05-2025 Telephone encounter Note* Telephone Encounter - Zeina Bloom CMA - 08/05/2024 10:51 AM EDT Mammogram order placed Zeina [facility]03-13-2024 History of Present illness Narrative* Marlo Reeves MD - 06/14/2023 7:40 AM EDT [facility] [address] [place] [facility] [id number] CHART NOTE ? 06/14/2023 Patient: Ashley Smith 1975 [id number] Physician: Marlo Reeves MD Last encounter with [...] the morning. She is able to walk upto a mile without any difficulty. The pain [...] grossly intact to light touch. Straight leg raiseis negative. Bilateral hips reveal good range of motion. Sacroiliac joints no tenderness to palpation. IMAGING: ASSESSMENT: Lumbar degenerative disc disease L5-S1 Mild disc bulging causing no central canal or foraminal stenosis. PLAN: Imaging as well as possible treatment options were discussed detail with the patient. At this pointshe has tried physical therapy with little to [...] of her lumbar spine. 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 She has been reporting some lower back pain for the past 10 years or so. She denies any lower extremity symptoms. She has notdone any pain management but she is done extensive physical therapy. 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 Denies any bowel or bladder dysfunction.Lumbar Spine examination reveals mild tomoderate tenderness. There is increased pain with extension and less pain with flexion. Negative straight leg raise. Calves are soft and nontender. Overlying skin is intact. There is no gross motor sensory deficit in bilateral lower extremities from L2 down to S1. Lumbar radiographs show some degenerative disc disease L5-S1. Lumbar MRIs not particularly impressive it does not warrant any surgicaltreatment. I discussed these findings with the patient. [...] record of the patient encounter. Inadvertent computerized adjunct professor of law errors related to syntax, spelling, homophones, and/or inaudibility may be present. documented in this encounterNortheastern Vermont Regional HospitaloDesk [id number] Instructions* Patient Instructions* Marlo Reeves MD - 06/14/2023 7:40 AM [...] doctor may have you work with a crew trainer, chiropractor or physical therapist to make [...] stretch in your lower back and buttock area.Repeat with the other knee. If you have [...] 3 to 5 seconds. Try to do theexercises 2 to 3 times each day. Do [...] help stop muscle injuries. This often happen whenmuscles are tight or weak. Helpful tips Stay [...] your doctor. Where can I learn more? [employer] https://orthoinfo.org/en/recovery/cqowq-dkfzgvajmwyg-oupskmg/spine-conditioning- program-pdf Last Reviewed Date 2020-06-18 Consumer Information Use [...] that may apply to a specific patient. Itis not intended to be medical advice or [...] or approved for treating a specific patient. [employer]. and its affiliatesdisclaim any warranty or liability relating to this information or the use thereof. The use of thisinformation is governed by the Terms of Use, available at https://www.Aristos Logicer.com/en/know/nstnvilh-vvokejpaatxqw-gqlqf Copyright Copyright 2022 [employer]. and its affiliates and/or licensors. All rights reserved. Patient Education Patient Education Low back pain in adults The Basics Written by the doctors and editors at [facility] How worried should I be about low [...] the spinal canal. Nerves branch from the spinalcord and pass in between the vertebrae. From [...] imaging test such an X-ray, CT scan, orMRI. Most cases of back pain go away a few weeks. Doctors usually do not order imaging tests unlessthere are signs of something unusual. If your [...] like lifting a heavy object or twisting yourback, you might have strained a muscle If [...] or heated wrap. Be careful to avoid highheat settings to prevent skin hernandez. Medicines - First, you can try pain medicines that you can get without a prescription. In many cases, doctors suggest first trying a nonsteroidal antiinflammatory drug, or NSAID. NSAIDs include ibuprofen (sample brand names: Advil, Motrin) and naproxen (sample brand name: Aleve). These might workbetter than acetaminophen (sample brand name: Tylenol) for [...] This is when someone who knows traditional Bahamian medicine inserts tiny needles intoyour body to block pain signals. Massage - [...] but also help you get back to yournormal activities. Exercises you can try include walking, [...] swelling. But this has only been proven towork in specific situations. Only a small number of people will need surgery to treat back pain. What can I do to keep from getting back pain again? -- The best thing you can do is to stay active.Doing exercises to strengthen and stretch your back [...] process is complete. This topic retrieved from [employer] on: May 16, 2022. Topic 95923 Version 20.0 Release: 30.5.3 - C31.43 2022 [employer] and/or its affiliates. All rights reserved. figure 1: Anatomy of the back Low back pain can be caused by problems with the muscles, ligaments, discs, bones (vertebrae), or nerves. Often, back pain is caused by strains or sprains involving the muscles or ligaments. These problems cannot always be seen on imaging tests, such as MRI or CT scans. Graphic 20460 Version 5.0 Consumer Information Use and Disclaimer [...] that may apply to a specific patient. Itis not intended to be medical advice or [...] or approved for treating a specific patient. [employer] and its affiliatesdisclaim any warranty or liability relating to this information or the use thereof.The use of this information is governed by the Terms of Use, available at https://www.wolterskluwer.com/en/know/qhrxawmc-ljvmekprmuugg-krezm 2022 [employer]. and its affiliates and/or licensors. All rights reserved. Copyright 2022 [employer]. and/or its affiliates. All rights reserved. documented in this encounterMartin Memorial HospitalBtiques [facility] [id number] History of Present illness Narrative* Kenny Porter, DO - 05/18/2023 10:30 AM EST Subjective Ashley Smith is a 48 y.o. [...] 28-30 days, lasting 7 days. Dysmenorrhea:severe, occurring premenstruallyand first 1-2 days of flow. Cyclic symptoms [...] past medical history, past social history, past surgicalhistory and problem list. Review of Systems Pertinent items are noted in HPI, otherwise negative. Objective There were no vitals filed for this visit. General: alert, appears stated age and cooperative Heart: regular rate and rhythm Lungs: clear to auscultation bilaterally Breast: normal without suspicious masses, skin or nipple changes or axillary nodes Abdomen: soft, non-tender, without masses or organomegaly Vulva: normal, Bartholin's, Urethra, [place]'s normal Vagina: Vaginal Cuff:no Bleeding: no Discharge: [...] or concerns, pt agreeable. documented in this encounterCleveland Clinic Foundation01-31-2024 Miscellaneous Notes* Telephone Encounter - Erika Ayala - 05/03/2023 11:29 AM EST PT called to confirm that physical therapy documents were received. Appears we have that from [facility] in her chart. Please advise if there is anything else needed from the patient at this time. Thank you! * Telephone Encounter - Jordyn Lovell CMA - 05/03/2023 11:29 AM EST Paperwork was faxed previously to pre cert documented in this encounterCleveland Clinic Foundation01-31-2024 Telephone encounter Note* Telephone Encounter - Erika Ayala - 05/03/2023 11:29 AM EST PT called to confirm that physical therapy documents were received. Appears we have that from [facility] in her chart. Please advise if there is anything else needed from the patient at this time. Thank you! [facility] [employer] [id number] Telephone encounter Note* Telephone Encounter - Jordyn Lovell CMA - 05/03/2023 11:29 AM EST Paperwork was faxed previously to pre cert [facility]01-29-2024 Miscellaneous Notes* Telephone Encounter - Erika Ayala - 05/01/2023 9:00 AM EST Phil with [facility] pre-cert. called Asking for physical therapy notes that can be sent over on this patient before their upcoming MRI appt on May 09. Please fax to [phone]. Please advise. Thank you! * Telephone Encounter - Nicole Crowe MD - 05/01/2023 9:00 AM EST Can you do this? * Telephone Encounter - Jordyn Lovell CMA - 05/01/2023 9:00 AM EST I called the patient back since there are no PT notes in her chart (Chang has a note she completed PT but there is not record of this in her chart and he ordered the MRI) She states she did PT thru her insurance and she will have the notes faxed over to our office Paperwork was faxed over from [facility] and was faxed to pre cert as requested per verbal order documented in this encounterCleveland Clinic [facility] [employer] [id number] Telephone encounter Note* Telephone Encounter - Erika Jamie - 05/01/2023 9:00 AM EST Phil with [facility] pre-cert. called Asking for physical therapy notes that can be sent over on this patient before their upcoming MRI appt on May 09. Please fax to [phone]. Please advise. Thank you! [employer]01-29-2024 Telephone encounter Note* Telephone Encounter - Nicole Crowe MD - 05/01/2023 9:00 AM EST Can you do this? [employer] Work Phone: [phone] Telephone encounter Note* Telephone Encounter - Jordyn Lovell CMA - 05/01/2023 9:00 AM EST I called the patient back since there are no PT notes in her chart (Chang has a note she completed PT but there is not record of this in her chart and he ordered the MRI) She states she did PT thru her insurance and she will have the notes faxed over to our office Paperwork was faxed over from [facility]/asha and was faxed to pre cert as requested per verbal order [facility] HospitalNew Life Electronic Cigarette SystemEvaluation note* Diagnosis Encounter for gynecological examination without abnormal finding- Primary Encounter for screening mammogram for malignant neoplasm of breast documented in this encounter [facility] [employer] SystemEvaluation note* Diagnosis Spondylosis of lumbar region without myelopathy or radiculopathy- Primary Severe back pain documented in this encounter [facility] [employer] SystemEvaluation note* Diagnosis Screening mammogram for breast cancer- Primary documented in this encounter [facility] SystemEvaluation note* Diagnosis Encounter for annual routine gynecological examination- Primary Encounter for screening mammogram for malignant neoplasm of breast Perimenopausal symptoms Healthcare maintenance documented in this encounter [facility] SystemInstructionsNot on filedocumented in this encounter [facility] SystemInstructionsNot on filedocumented in this encounter [facility] SystemInstructions* Attachments The following attachments cannot be sent through Care Everywhere. * Gynecological Exam (Citizen Of [place]) documented in this encounterProMercy Health St. [facility] SystemInstructionsNot on file documented in this encounterProOhiohealth Nelsonville Health CenterReason for referral (narrative)* Consultation (Routine) - Pending ReviewSpecialtyDiagnoses / ProceduresReferred By ContactReferred To ContactFlagstaff Medical Center Medicine Diagnoses Spondylosis of lumbar region without myelopathy or radiculopathy Marlo Reeves MD [address] [place] [address], [place] [address] Ludwin Alexander MD [address] [employer] [place] [address] Referral IDStatusReasonStart DateExpiration DateVisits RequestedVisits [id number] Review/ [facility] Summary Purpose Family History No Family History Records FoundNo Family History Records FoundNo Family History Records Found Advance Directives No Advanced Directives Records FoundDocuments on File TypeDate RecordedPatient RepresentativeExplanationAdvance Directive05/06/2019 11:34 AMppgad 05/06/2019TypeDate RecordedPatient RepresentativeExplanation Advance Directive05/06/2019 11:34 AMppgad 05/06/2019 Additional Source Comments INFORMATION SOURCE (unrecogn ized section and content) DATE CREATED AUTHOR 06/15/2023 [facility] DATE CREATED AUTHOR AUTHOR'S ORGANIZ ATION 08/11/2024 [facility] DATE CREATED AUTHOR AUTHOR'S ORGANIZ ATION 01/07/2025 [facility] Care Teams (unrecognized sec tion and content) Team Member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SpecialtyStart DateEnd Date Loida Joyce MD [address] [place] [address], [address] [place] [address] PCP - Cicylct68/22/13Team Member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SpecialtyStart DateEnd [facility] Loida Joyce MD [address] [place] [address], [address] [place] [address] PCP - Ozaqzvh10/22/13Team Member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SpecialtyStart DateEnd [facility] Loida Joyce MD [address] [place] [address], [address] [place] [address] PCP - Aizmpii39/22/13Team Member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SpecialtyStart DateEnd Date Loida Joyce MD [address] [place] [address], [address] [place] [address] PCP - Mrdnfzs20/22/13Team Member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SpecialtyStart DateEnd Date Karina Valente, PRESS TENDER SMOKE SIGNAL-INTERNIST [address] [place] [id number] PCP - GeneralFamily Medicine10/27/23Team Member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SpecialtyStart DateEnd Date Martin Henson MD PCP - GeneralObstetrics & Gynecology10/31/24 Reason for Visit (unrecogniz ed section and content) ReasonCommentsGynecologic ExamReasonCommentsPainLumbar- pain stays in back, minimal painSpecialtyDiagnoses / ProceduresReferred By ContactReferred To ContactOrthopedic Surgery Diagnoses Severe back pain Loida Joyce MD [address] [place] [address], [address] [place] [address] Marlo Reeves MD [facility], [address] [address] Referral IDStatusReasonStart DateExpiration DateVisits RequestedVisits [id number] Review Specialty Services Required [id number] Refill FOR RECORDS PERTAINING TO PATIENTS WHO [...] BE BASED ON THE PRIMARY CLINICAL RECORDS. [facility] [employer] provides no warranty or guarantee of the accuracy or completeness of information in this document.
--- OUTSIDE RECORDS SUMMARY | 2025-02-26 09:58 | XMS_ITS | Clinical Summary ---
Author Organization [facility] tem Address [id number] [address] [place] [address] Care Team Providers Care Industrial Rehabilitation Consultant Name Role Phone Luis Antonio Keyes MD Primary Care Provider Unavail able Allergies No known active allergies Medications MedicationSigDispense QuantityRefillsLast FilledStart DateEnd DateStatus MULTIVIT-MINERALS/FERROUS FUM (MULTI VITAMIN ORAL) Take by mouth.Active omega 6-dzg-wja-fish oil (Fish OiL) 300-1,000 mg capsule Take by mouth.Active Lactobac no.41/Bifidobact no.7 (PROBIOTIC-10 ORAL) Take by mouth.Active EPINEPHrine (EPIPEN) 0.3 mg/0.3 mL auto-injector Inject 0.3 mL (0.3 mg total) into the appropriate muscle as needed (for sevre allergy). 2 each 3Active Active Problems ProblemNoted DateDiagnosed BwdpVmohzncdovvfgona63/03/2020Epidermal inclusion cyst07/19/2017Cognitive ksteec2712/27/2015Mild memory vdxpssycchf62/25/2016 Resolved Problems ProblemNoted DateDiagnosed DateResolved DateEncounter for routine gynecological cqvnxpetdhi21 Encounters DateTypeDepartmentCare PszeKujsrfhdxtc20/03/2025 4:12 PM EDT - 01/03/2025 11:59 PM EDTHospital Encounter [facility] [address] [place] [id number] Metatarsalgia, unspecified laterality Discharge Disposition: Home01/03/2025Travelfrom Last 3 Months Immunizations ImmunizationAdministration DatesNext DueInfluenza, Rxztxvqioth19/09/2018, 12/14/2016Tdap11/27/2014 Family History Medical HistoryRelationNameCommentsDiabetesFatherHypertensionFatherSkin cancer FatherAlcohol abuseOtherNo Known ProblemsSisterAnesthesia problemsNeg HxBreast cancerNeg HxColon cancerNeg HxOvarian cancerNeg HxUterine cancerNeg HxRelation NameStatusCommentsFatherAliveMaternal AuntAliveMaternal GrandfatherDeceased Maternal GrandmotherDeceasedMotherAliveOtherPaternal GrandfatherDeceasedPaternal GrandmotherDeceasedPaternal UncleAliveSisterAlive Social History Tobacco UseTypesPacks/DayYears UsedDateSmoking Tobacco: NeverPassive Smoke Exposure: NeverSmokeless Tobacco: NeverAlcohol UseStandard Drinks/WeekComments Yes1 (1 standard drink = 0.6 oz pure alcohol)AUDIT-CAnswerDate RecordedQ1: How often do you have a drink containing alcohol?2-4 times a month02/13/2020Q2: How many drinks containing alcohol do you have on a typical day when you are drinking?1 or Q3: How often do you have six or more drinks on one occasion?Less than lifofba7502/13/2020PHQ-2AnswerDate RecordedTotal Score0 5ChildcareAnswerDate GlxpdanyZbtoxxqggXqnxgct66/11/2019EmploymentAnswer Date RkuexklgJuuciqurnwHaiharr08/11/2019Hunger ScreeningAnswerDate Recorded Within the past 12 months we worried whether our food would run out before we got money to buy more.Never True10/31/2024Within the past 12 months the food we bought just didn't last and we didn't have money to get more.Never True 10/31/2024Purpose - LifeAnswerDate RecordedPurpose and direction in lifeUnknown 1CommentsNoSex and Gender InformationValueDate RecordedSex Assigned at QfewzHxizgd33/18/2021 3:09 PM ESTLegal DupWgccvm55/04/2015 7:08 PM EDTGender NgrgjzuyBmpjay43/18/2021 3:09 PM ESTSexual OrientationStraight 03/20/2021 3:09 PM ESTOccupationIndustryJob Start DateJob End DateteacherNot on fileNot on fileNot on file Last Filed Vital Signs Vital SignReadingTime TakenCommentsBlood Fjvvhsyl81/62010/31/2024 10:46 AM EDT Jacij429105/06/2019 11:14 AM MTCEyfgirqdgvk41.9 ??C (98.5 ??F)05/06/2019 11:14 AM ESTRespiratory Dnhc010207/04/2017 1:23 PM EDTOxygen Fnoijlazfx22%05/06/2019 11:14 AM ESTInhaled Oxygen Concentration--Cqmzts62.5 kg (162 lb)10/31/2024 10:46 AM AGBGofase615.2 cm (5' 7.01 )10/31/2024 10:46 AM EDTBody Mass Index25.37 10/31/2024 10:46 AM EDT Plan of Treatment DateTypeDepartmentCare Team (Latest Contact Info)Lpzvmmgdshp45/19/2026 12:30 PM ESTOffice Visit [facility] [address] [place] [address] [address] [place] [address] Noemy Porter, [address], [address] [place] [address] 10/30/2025 9:00 AM EDTAppointment [facility] [address] [id number] 02/24/2026 3:15 PM ESTOffice Visit [facility] [address] [place] [address] [address] [place] [address] Noemy Porter Dillon, [address], [address] [place] [address] Health MaintenanceDue DateLast DoneCommentsAdult BMI Follow Up Plan02/01/1994 DTaP,Tdap and Td Vaccines (2 - Td or Tdap)2015COVID-19 Vaccine ( season)/03/2021, 06/12/2020, 05/22/2020Influenza Ddgiioj59/12/2017, 12/14/2016Pap Smear/, 03/31/2022, 01/17/2019, Additional history existsAdult BMI Uhwkdnhnt56/31/2026 10/31/2024Depression Munmkkzhi13/31/541829/Tobacco Ckxcmtfvw71/31/2026 10/31/20249033Dmydyfvyy21, 08/21/2023, 08/26/2022, Additional history exists Medical Devices Not on file Procedures Procedure NamePriorityDate/TimeAssociated DiagnosisCommentsXR FOOT RT MIN 3 VWS Zkxxfnj8701/03/2025 4:20 PM EDT Metatarsalgia, unspecified laterality MAMM SCREENING BILATERAL W XZUNudovsi52/18/2025 10:08 AM EDT Screening mammogram for breast cancer PAP YZXJWAmmdpfn72/29/2022 9:17 AM EST Pap smear for cervical cancer screening from Last 3 Months or Most Recently Relevant to Health Maintenance Results * X-ray foot right minimum 3 views (01/03/2025 4:20 PM EDT)Anatomical Region LateralityModalityLower Extremities, MSK, FootRightComputed Radiography Specimen (Source)Anatomical Location / LateralityCollection Method / Volume Collection TimeReceived Time01/05/2025 3:50 AM EDT Narrative 01/05/2025 6:06 AM EDT EXAM: XR FOOT RT MIN 3 VWS [...] Jose Martin Davis MD on 01/05/2025 6:06 AM Procedure Note Jose Martin Davis MD - 01/05/2025 EXAM: XR FOOT RT MIN 3 VWS CLINICAL INFORMATION: Metatarsalgia, unspecified laterality. COMPARISON: 10/28/2024 FINDINGS: There is no evidence for an acute displaced fracture or malalignment ofthe foot. 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 IMPRESSION: 1. No evidence for an acute displaced fracture or malalignment of thefoot. 2. Stable moderate first MTP joint DJD. Finalized by Jose Martin Davis MD on 01/05/2025 6:06 AM Authorizing ProviderResult TypeResult StatusKennetECU Health [facility] MDTULSA [facility] [place] [facility] IMAGING ORDERABLESFinal Result * Mammography screening bilateral with CAD (09/18/2024 10:08 AM EDT)Anatomical RegionLateralityModalityBreastBilateralMammographySpecimen (Source)Anatomical Location / LateralityCollection Method / VolumeCollection TimeReceived Time 09/21/2024 8:32 AM EDT Narrative 09/21/2024 8:36 AM EDT ASHLEY SMITH 1975 [id number] EXAM: MAMM SCREENING BILATERAL W CAD, 09/18/2024 [...] malignancy. BI-RADS: BI-RADS 1 - Negative RECOMMENDATION: ??Routine screening mammogram in 1 year. RISK ASSESSMENT: TC Lifetime risk: 11%. The patient's reported personal and family medical history was used calculate their Tyrer-Cuzick lifetime risk of malignancy. Scores less than 20% are not considered high risk per ACR guidelines and patient should continue with the above recommendation. Finalized by Flora Burrell MD on 09/21/2024 8:36 AM 1 b MAMM 1 YR [facility] Accredited Performing Facility: [facility] - Mammography [address], [facility] [address] Procedure Note Flora Burrell MD - 09/21/2024 ASHLEY Dobbins CASTRO 1975 [id number] EXAM: MAMM SCREENING BILATERAL W CAD, 09/18/2024 9:46 AM CLINICAL INDICATIONS: Screening, Screening mammogram for breast cancer COMPARISON: 08/21/2023, 08/16/2022 TECHNIQUE: Bilateral digital tomosynthesis MLO and CC views of the breastswere obtained, with creation of synthetic 2D views. Computer aideddetection was utilized. FINDINGS: There are scattered areas of fibroglandular density. There are no suspicious masses, calcifications, or areas of architectural distortion. IMPRESSION: No mammographic evidence of malignancy. BI-RADS: BI-RADS 1 - Negative RECOMMENDATION: Routine screening mammogram in 1 year. RISK ASSESSMENT: TC Lifetime risk: 11%. The patient's reported personal and family medical history was usedcalculate their Tyrer-Cuzick lifetime risk of malignancy. Scores less than20% are not considered high risk per ACR guidelines and patient shouldcontinue with the above recommendation. Finalized by Flora Burrell MD on 09/21/2024 8:36 AM 1 b MAMM 1 YR [facility] Accredited Performing Facility: [facility] - Mammography [address], [facility] [address] Authorizing ProviderResult TypeResult StatusSara S Charlotte [facility] MAMMOGRAPHY ORDERABLESFinal Result * Pap Smear (03/31/2022 9:17 AM EST)Specimen (Source)Anatomical Location / LateralityCollection Method / VolumeCollection TimeReceived Time03/31/2022 9:17 AM EST03/31/2022 9:18 AM EST Narrative COPATH - 04/04/2022 2:16 PM EST [facility] ? [address] [place] [address] ? [place] [address] ? Gynecologic Cytology Consultation ? Patient Name:ASHLEY SMITH.:1975 (Age: 47)Gender:FTaken:2Reported:3Physician(s):Noemy Porter DO ([phone])Copy To: Rec. #:[id number]: #[id number] Final Cytologic Interpretation ThinPrep Pap Test (Cervical): Satisfactory for evaluation. A transformazion zone component is not identified via imaging-assistedreview, using [employer] Thin Prep Imaging System, within 22 microscopic charles of vew. NEGATIVE FOR INTRAEPITHELIAL LESION OR MALIGNANCY. ?? pmc/04/04/2022 Interpretation performed at [facility], [address] [place] [address], License number: [id number]. Electronically Signed Out By ?ADELFO Taylor(ASCP) Date of Last Menstrual Period: ? 03/09/22 Other Clinical Conditions: Z12.4 Screening for malignant neoplasm of cervix Source of Specimen ??ThinPrep Pap Test (Cervical) ? Thin Prep Pap (PRODUCTION TECH) Fee Code(s): ?? G0145 Authorizing ProviderResult TypeResult StatusSaraporsche Porter DOPATHOLOGY/CYTOLOGY ORDERABLESFinal ResultPerforming OrganizationAddressCity/State/ZIP CodePhone Number COPATH from Last 3 Months or Most Recently Relevant to Health [place] [address] Advance Directives TypeDate RecordedPatient RepresentativeExplanationAdvance Directive05/06/2019 11:34 AMppgad 05/06/2019 Care Teams Team Member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SpecialtyStart DateEnd Date Luis Antonio Keyes MD PCP - GeneralObstetrics & Gynecology10/31/24
--- OUTSIDE RECORDS SUMMARY | 2025-02-26 09:58 | XMS_ITS | Clinical Summary ---
Author Organization [facility] Address [address], [address] [place] [address] Care Team Providers Care Donor Services Specialist Name Role Phone Loiad Arguello MD Primary Care Provider [phone] Allergies No known active allergies Medications No known medications Family History Medical HistoryRelationNameCommentsDiabetesFatherHigh Blood PressureFatherHigh CholesterolFatherRelationNameStatusCommentsFather Social History Tobacco UseTypesPacks/DayYears UsedDateSmoking Tobacco: NeverSmokeless Tobacco: NeverAlcohol UseStandard Drinks/WeekCommentsYes0 (1 standard drink = 0.6 oz pure alcohol)sociallyCommentsUnknownSex and Gender InformationValueDate RecordedSex Assigned at BirthNot on fileLegal PtsAygncu54/29/2016 9:15 AM EST Gender IdentityNot on fileSexual OrientationNot on file Last Filed Vital Signs Vital SignReadingTime TakenCommentsBlood Rqivpjte637/6603/16/2016 8:21 AM EST Yonsz332503/16/2016 8:21 AM ESTTemperature--Respiratory Rate--Oxygen Saturation-- Inhaled Oxygen Concentration--Duvpxm41.8 kg (145 lb)04/14/2021 10:52 AM EST Yjhhqd035.7 cm (5' 8 )04/14/2021 10:52 AM ESTBody Mass Index22.05004/14/2021 10:52 AM EST Plan of Treatment Not on file Insurance Care Teams Team Member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SpecialtyStart DateEnd Date Loida Arguello MD PCP - Jjeaydg81/29/16
--- NOTE | 2025-02-26 10:23 | PM.CN ---
Consult Note: HPI Data of Consult Patient: known to practice within the last 3 years Consult date: 02/26/25 Requesting Physician: Melody Laboy NP Primary Care Provider: Non-Staff Physician, MD Consult Narrative Reason for consult: low back pain Narrative: Ashley Smith a pleasant 50 year old female with chronic low back pain >3 years unresponsive to > 6 weeks of PT/HEP, heat, ice, tylenol, NSAIDs presents for evaluation. patient noted less than 50% improvement less than 6 months from prior bilateral L4-5 L5-S1 facet RFA. She is noticing she had mild relief for a few months, but over the last 2-3 months this has worsened. She notes significant pain with leaning forward, yardwork, lifting, ADLs, and getting dressed. Notes improvement in pain with sitting, TENS, and sleep. Prior lumbar MRI from 05/2023 revealed severe bilateral foraminal stenosis at L5-S1 with multilevel DDD and facet arthropathy. Patient denies injury/fall since last visit. Pain today 4/10 increasing to 9/10. Denies numbness, tingling, weakness. cc:: CC: Melody Laboy NP Review of Systems ROS Musculoskeletal Reports: back pain; Denies: extremity pain [facility] Medical History (Updated 02/26/25 @ 10:28 by Melody Laboy NP) Low back pain ?M54.50 - Low back pain, unspecified (ICD-10) Surgical History H/O section ?Z98.891 - History of uterine scar from previous surgery (ICD-10) Meds Home Medications and Allergies Home Medications ?Medication ?Instructions ?Recorded ?Confirmed ?Type buspirone 5 mg tablet 5 mg PO BID PRN anxiety 01/16/24 07/29/24 History citalopram 40 mg tablet (Celexa) 40 mg PO DAILY 01/16/24 07/29/24 History phentermine 37.5 mg tablet 18.75 mg PO DAILY 01/16/24 07/29/24 History (Adipex-P) Allergies Allergy/AdvReac Type Severity Reaction Status Date / Time No Known Drug Allergies Allergy Verified 07/29/24 06:55 Exam Constitutional Documenting provider has reviewed patient's vital signs: yes Common normals: no apparent distress, oriented x3 and alert General appearance: cooperative HENMT Common normals: normocephalic, hearing grossly normal bilaterally and moist oral mucous membranes Head and scalp: normocephalic Eye Common normals: PERRL Pupil: PERRL Neck & C-Spine Common normals: full ROM General: normal visual inspection Chest Common normals: inspection of chest normal Respiratory Common normals: normal respiratory effort, no retractions and no use of accessory muscles Back & Pelvis Lumbar spine/lower back: ROM limited, pain with ROM and straight leg raise negative bilaterally; no lumbar spinal tenderness and no paraspinal muscle tenderness Sacroiliac joints: SI joints normal Other: negative bilateral sij alf(patricks), gaenslens, thigh thrust, compression test strength 5/5 in BLE sensation intact BLE significant pain to L3-5 with forward flexion. minimal pain with facet loading Extremity Common normals: normal to inspection and full ROM Neuro Common normals: oriented x3 Sensorium/orientation: alert Psych Common normals: mental status grossly normal, thought process normal, cooperative, affect normal, speech normal and activity/motor behavior normal Speech: normal speech Thought process: normal thought process Results Additional Findings Additional findings: If on a controlled substance or opioids, I have checked an [place]AR[place] report on this patient and there are no aberrancies noted in the prescribing history.??If on a controlled substance or opioid a drug screen was completed and reviewed within the last year, and if there has not been a drug screen completed we ordered one today to monitor higher risk, state monitored pain medication use. As part of providing excellent, safe, comprehensive care, the following was completed at our patient's visit: 1. A medication reconciliation and review to ensure accurate knowledge of current/active medications, including asking our patients to inform us about any yybc-kmz-nlbszqs medications or herbal remedies/nutritional supplements/alternative remedies. 2. A review to specifically ensure our patients have had annual screening for screening for depression, screening for tobacco use, and screening for unhealthy alcohol use. For concerning screenings had a discussion with the patient, provided patient education, and recommended follow-up with primary care provider when appropriate. If patient noted with a risk of falling, they received education on strength, gait, and balance training to prevent future risk of falling. Portions of this note may have been carried over from the previous visit and updated as appropriate. Please note this office utilizes paper charting in addition to the electronic medical record. A list of current medications, vitals, and PMH is available there as the clinical staff outside of myself do not have access to [facility] charting during the clinic day operations. As part of providing quality comprehensive care the current medications, vitals, and PMH were reviewed in the paper chart. Assessment and Plan Assessment and Plan (1) Lumbar stenosis without neurogenic claudication: (2) Vertebrogenic low back pain: (3) Lumbar spondylosis: (4) Myalgia: Plan The patient has had over 3 months of moderate to severe low back pain with functional impairment and inadequate response to conservative care including NSAIDS (unless there are contraindication such as concurrent blood thinners), multiple oral or topical pain medications, and home exercise program/physical therapy.? Patient has completed >6 weeks of guided home exercise program and/or formal physical therapy program without relief of their symptoms.? The Oswestry Disability Index was completed, and the patient scored a 20%.? update lumbar MRI without contrast to assess chronic low back pain, lumbar ddd with discogenic low back pain, vertebrogenic low back pain in consideration of interventional therapy vs ns consultation continue otc nsaids prn start cyclobenzaprine 5-10mg bid prn pain/spasms f/u to review lumbar MRI once complete?
== END 2025-02-26 09:56 | disposition home or self-care (01) ==
LOC: PM 09:55
PROVIDERS: Visit Provider Nurse Practitioner
DX: M48.062 Spinal stenosis, lumbar region with neurogenic claudication (principal); M54.51 Vertebrogenic low back pain; M47.816 Spondylosis without myelopathy or radiculopathy, lumbar region; M79.18 Myalgia, other site
CPT/HCPCS: G0463